=== PATIENT | female | born 1940 | race Caucasian/White ===

== ENCOUNTER 2017-10-05 19:46 | Emergency (ER) | payer MEDICARE, OTHER ==
[~2017-10-05 19:46] MED LIST: ASPI-667 PO; ATOR20TA PO; CARV6.25 PO; CHOL20002 PO; DIGO125T PO; FAMO-75 PO; FERR47.57 PO; FURO-81 PO; IBUP200C5 PO; LORA10TA62 PO; LOSA25TA5 PO; MAGN250T9 PO; METH500T7 PO; MONT10TA6 PO; POTA20TA14 PO; TRAM50TA PO; TRIA10.8 NS
[2017-10-05 20:24] VITALS: BP 154/84
--- NOTE | 2017-10-05 20:29 | ER.PDOC ---
General Chief Complaint: Requesting Medical Care Stated Complaint: BLOODY NOSE Time seen by MD: 20:20 Source: patient Exam Limitations: no limitations History of Present Illness Initial Comments Pt with right nose bleed since this morning, stopped and later on resumed again and by now has stopped again Timing/Duration: abrupt Location: right nare Severity: moderate Associated Symptoms: recent illness Allergies: Coded Allergies: Iodinated Contrast Media - Oral and (Verified Allergy, Severe, 06/14/16) codeine (Verified Adverse Reaction, Unknown, 10/27/16) Home Meds Reported Medications Ibuprofen (IBUPROFEN) 200 Mg Capsule, 200 MG PO PRN Y for PAIN, CAPSULE 01/28/15 Magnesium Oxide (MAGNESIUM) 250 Mg Tablet, 250 MG PO DAILY, TABLET 01/28/15 Aspirin (ASPIRIN) 81 Mg Tab.chew, 1 TAB PO DAILY, #30 TAB 3 Refills 01/28/15 Triamcinolone Acetonide (Nasacort) 10.8 Ml [place], 10.8 ML NS DAILY, SPRAY 01/28/15 Famotidine (PEPCID) 20 Mg Tablet, 1 TAB PO DAILY, #60 TAB 3 Refills 01/28/15 Loratadine (LORATADINE) 10 Mg Tab.rapdis, 10 MG PO DAILY 01/28/15 Cholecalciferol (Vitamin D3) (VITAMIN D) 2,000 Unit Tablet, 2000 UNIT PO DAILY, TABLET 01/28/15 Ferrous Sulfate (SLOW RELEASE IRON) 47.5 Mg Tablet.er, 47.5 MG PO BID 01/28/15 Tramadol Hcl (TRAMADOL HCL) 50 Mg Tablet, 50 MG PO PRN Y for PAIN, TABLET 01/28/15 Montelukast Sodium (SINGULAIR) 10 Mg Tablet, 1 TAB PO DAILY, #90 TAB 1 Refill 01/28/15 Methocarbamol (METHOCARBAMOL) 500 Mg Tablet, 500 MG PO PRN Y for MUSCLE SPASM, TABLET 01/28/15 Potassium Chloride (POTASSIUM CHLORIDE) 20 Meq Tab.er.prt, 1 TAB PO DAILY, #30 TAB 5 Refills 01/28/15 Furosemide (LASIX) 20 Mg Tablet, 1 TAB PO DAILY, #90 TAB 1 Refill 01/28/15 Losartan Potassium (LOSARTAN POTASSIUM) 25 Mg Tablet, 1 TAB PO DAILY, #90 TAB 1 Refill 01/28/15 Carvedilol 6.25MG (COREG 6.25MG) 6.25 Mg Tablet, 1 TAB PO BID, #180 TAB 1 Refill 01/28/15 Digoxin (DIGOXIN) 125 Mcg Tablet, 1 TAB PO DAILY, #30 TAB 5 Refills 01/28/15 Atorvastatin 20MG (LIPITOR 20MG) 20 Mg Tablet, 1 TAB PO DAILY, #90 TAB 1 Refill 01/28/15 Constitutional: no symptoms reported Eyes: no symptoms reported Ears: no symptoms reported Nose: see HPI, clots, epistaxis Mouth: no symptoms reported Throat: no symptoms reported Respiratory: no symptoms reported Cardiovascular: no symptoms reported Gastrointestinal: no symptoms reported Musculoskeletal: no symptoms reported Skin: no symptoms reported Neurological: no symptoms reported Hematologic/Lymphatic: no symptoms reported Immunological/Allergic: no symptoms reported Past Medical History Surgical History: tonsillectomy, tubal, other Physical Exam General Appearance: alert, no distress Nose: no active bleeding, fresh clots, uncertain Head/Neck: atraumatic, thyroid nml Eyes/Ears: eyes nml inspection, PERRL, no nystagmus, TM nml Mouth: lips, gums nml, pharynx nml NEURO/PSYCH: oriented X3, mood/effect nml Respiratory: no resp. distress CVS: reg. rate & rhythm, heart sounds nml Abdomen: non-tender, no organomegaly Skin Exam: Normal Color, Warm/Dry Departure Time of Disposition: 20:30 Disposition: 01 HOME, SELF-CARE Impression: Primary Impression: Epistaxis Condition: Stable Patient Instructions: Nosebleed, [id number] Referrals: ABEL SAUER MD (PCP) PRIMARY CARE PROVIDER Duration or Time Spent with Pa: LILIAN LOPEZ MD Oct 05, 2017 20:29
[2017-10-05 20:55] VITALS: BP 154/84
== END 2017-10-05 20:51 | disposition home or self-care (01) ==
LOC: ER 19:46
DX: R04.0 Epistaxis (principal); Z79.82 Long term (current) use of aspirin; Z88.5 Allergy status to narcotic agent; Z79.899 Other long term (current) drug therapy
CPT/HCPCS: 99281

== ENCOUNTER 2019-01-19 08:23 | Emergency (ER) | payer MEDICARE ==
[~2019-01-19] VITALS: Ht 162.6 cm; Wt 83.9 kg
[~2019-01-19 08:23] MED LIST changes: -CHOL20002 PO; +CHOL200052 PO; -IBUP200C5 PO; +LOSA25TA12 PO; -LOSA25TA5 PO; +[UNRECOGNIZED DRUG - CODE] PO
[2019-01-19 08:44] VITALS: BP 142/59
--- NOTE | 2019-01-19 08:58 | ER.PDOC ---
General Chief Complaint: Trauma Stated Complaint: FALL-FACIAL INJURY Time seen by MD: 09:00 Source: patient Exam Limitations: no limitations History of Present Illness Occurred: just prior to arrival Where: home Severity: mild Injuries/Pain Location: face, chest, lower extremity Loss of Consciousness: No Loss of Consciousness Modifying Factors: improves with immobilization Associated Symptoms: denies symptoms Allergies: Coded Allergies: Iodinated Contrast Media - Oral and (Verified Allergy, Severe, 06/14/16) codeine (Verified Adverse Reaction, Unknown, 10/27/16) MEDS Reported Medications Ibuprofen (IBUPROFEN) 200 Mg Capsule, 200 MG PO PRN PRN for PAIN, CAPSULE 01/28/15 Magnesium Oxide (MAGNESIUM) 250 Mg Tablet, 250 MG PO DAILY, TABLET 01/28/15 Aspirin (ASPIRIN) 81 Mg Tab.chew, 1 TAB PO DAILY, #30 TAB 3 Refills 01/28/15 Triamcinolone Acetonide (Nasacort) 10.8 Ml [place], 10.8 ML NS DAILY, SPRAY 01/28/15 Famotidine (PEPCID) 20 Mg Tablet, 1 TAB PO DAILY, #60 TAB 3 Refills 01/28/15 Loratadine (LORATADINE) 10 Mg Tab.rapdis, 10 MG PO DAILY 01/28/15 Cholecalciferol (Vitamin D3) (VITAMIN D) 2,000 Unit Tablet, 2000 UNIT PO DAILY, TABLET 01/28/15 Ferrous Sulfate (SLOW RELEASE IRON) 47.5 Mg Tablet.er, 47.5 MG PO BID 01/28/15 Tramadol Hcl (TRAMADOL HCL) 50 Mg Tablet, 50 MG PO PRN PRN for PAIN, TABLET 01/28/15 Montelukast Sodium (SINGULAIR) 10 Mg Tablet, 1 TAB PO DAILY, #90 TAB 1 Refill 01/28/15 Methocarbamol (METHOCARBAMOL) 500 Mg Tablet, 500 MG PO PRN PRN for MUSCLE SPASM, TABLET 01/28/15 Potassium Chloride (POTASSIUM CHLORIDE) 20 Meq Tab.er.prt, 1 TAB PO DAILY, #30 TAB 5 Refills 01/28/15 Furosemide (LASIX) 20 Mg Tablet, 1 TAB PO DAILY, #90 TAB 1 Refill 01/28/15 Losartan Potassium (LOSARTAN POTASSIUM) 25 Mg Tablet, 1 TAB PO DAILY, #90 TAB 1 Refill 01/28/15 Carvedilol 6.25MG (COREG 6.25MG) 6.25 Mg Tablet, 1 TAB PO BID, #180 TAB 1 Refill 01/28/15 Digoxin (DIGOXIN) 125 Mcg Tablet, 1 TAB PO DAILY, #30 TAB 5 Refills 01/28/15 Atorvastatin 20MG (LIPITOR 20MG) 20 Mg Tablet, 1 TAB PO DAILY, #90 TAB 1 Refill 01/28/15 Past Medical History Medical History: heart valve disease, hypertension Surgical History: hysterectomy LMP (females 10-50): hysterectomy Social History Smoking: non-smoker Alcohol Use: none Drug Use: none Reviewed Nursing Reviewed: Vital Signs, Abn. Noted Review of Systems All Other Systems: Reviewed and Negative Physical Exam General Appearance: No Apparent Distress, WD/WN Head: No Evidence of Injury Ears, Nose, Mouth, Throat: Hearing Grossly Normal, No Dental Injury Neck: Non-Tender, Normal Alignment, Nexus criteria neg, Normal Inspection 1 - nasal deformity Cardiovascular/Respiratory: Regular Rate, Rhythm, No M/R/G, Normal Peripheral P ulses, No JVD, Normal Breath Sounds, No Respiratory Distress, Rib Tenderness Gastrointestinal: Normal Bowel Sounds, No Organomegaly, No Pulsatile Mass, Non Tender, Soft Back: Normal Inspection, No CVA Tenderness, No Vertebral Tenderness Extremities: No Evidence of Injury, Normal Range of Motion, Non-Tender, No Pedal Edema, Other (great t) 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 as Tested, No Motor/Sensory Deficits, Alert, Normal Mood/Affect, Oriented x 3 Skin: Normal Color [place] Coma Score [place] Total: 15 Results/Orders Results/Orders Orders - MIRNA MARIO MD Ct Facial Bones Wo Contrast (01/19/19 08:51) Xr Ribs Lt W/Cxr (01/19/19 08:51) Xr Toe Rt (01/19/19 08:51) Vital Signs Date Time Temp Pulse Resp B/P (MAP) Pulse Ox O2 Delivery O2 Flow Rate FiO2 01/19/19 08:44 97.8 69 18 142/59 (86) 97 Room Air 97.8 01/19/19 08:44 97.8 69 18 97.8 01/19/19 08:44 97.8 69 18 97 Room Air 97.8 Departure Time of Disposition: 10:22 Disposition: 01 HOME, SELF-CARE Impression: Primary Impression: Nasal bone fracture Additional Impression: Contusion Condition: Improved Referrals: ABEL SAUER MD (PCP) PRIMARY CARE PROVIDER Duration or Time Spent with Pa: 30 MIN MIRNA MARIO MD Jan 19, 2019 08:58
--- NOTE | 2019-01-19 09:09 | NUR ---
CT PT OFF UNIT FOR CT VIA W/C.
--- NOTE | 2019-01-19 09:40 | DIREP ---
PROCEDURE:XRAY RIBS W/PA CHEST 3VWS-LT COMPARISON:None. INDICATIONS:fall, 5,6 rib pain l TECHNIQUE:PA chest and 3 view of the left ribs FINDINGS: Left RIBS:No displaced fracture. LUNGS/PLEURA: Trace linear right lower lobe airspace opacities. Left lung is clear. No pneumothorax. CARDIAC: Heart size is normal. Sternotomy wires are noted. Prosthetic heart valve. MEDIASTINUM: Aorta is partly calcified. BONES: Normal. OTHER: No additional findings. CONCLUSION: 1. Trace linear patchy opacity in the right lower lobe may represent atelectasis or pleural plaquing. 2. No evidence of displaced rib fracture. No pneumothorax. Dictated by: Rigo Smalls MD on 01/19/2019 at 09:37 AM
--- NOTE | 2019-01-19 09:42 | DIREP ---
PROCEDURE:XRAY TOE-RT COMPARISON:None. INDICATIONS:fall FINDINGS:AP, lateral, and oblique view. BONES:No evidence of radiodense foreign body. JOINTS:No dislocation. Mild degenerative changes of the 1st metatarsal phalangeal joint. SOFT TISSUES:Calcifications are seen on the lateral view that may be related to plantar fasciitis or sequelae of prior injury. OTHER:No additional findings. CONCLUSION:No acute visible fracture. See above description. Dictated by: Rigo Smalls MD on 01/19/2019 at 09:40 AM
--- NOTE | 2019-01-19 09:54 | DIREP ---
PROCEDURE:CT MAXILLOFACIAL W/O CONTRAST COMPARISON:None. INDICATIONS:fall, nasal deformity TECHNIQUE:Axial CT images were created without intravenous contrast. Sagittal and coronal reformatted images are provided. FINDINGS: ORBITS:The globe is intact. No extraocular muscle entrapment is identified. No orbital wall fracture is identified. FACIAL BONES:No fracture. NASAL BONES :Age-indeterminate medially displaced or nondisplaced bilateral nasal bone fractures are seen. MANDIBLE:No fracture. SINUSES:Post sinus surgery. Bilateral mucosal thickening in the maxillary sinuses. SOFT TISSUES:No significant hematoma, or soft tissue swelling. CONCLUSION: 1. Age-indeterminate medially displaced or nondisplaced bilateral nasal bone fractures. 2. Severe maxillary sinus disease. Dictated by: Abhi Wadsworth MD on 01/19/2019 at 09:45 AM
[2019-01-19 11:26] VITALS: BP 142/59
== END 2019-01-19 10:23 | disposition home or self-care (01) ==
LOC: ER 08:23
DX: S02.2XXA Fracture of nasal bones, initial encounter for closed fracture (principal); I10 Essential (primary) hypertension; Z79.82 Long term (current) use of aspirin; Z79.899 Other long term (current) drug therapy; Z88.5 Allergy status to narcotic agent; Z90.710 Acquired absence of both cervix and uterus; X58.XXXA Exposure to other specified factors, initial encounter; Y93.89 Activity, other specified; Y92.098 Other place in other non-institutional residence as the place of occurrence of the external cause; Y99.8 Other external cause status
CPT/HCPCS: 70486; 99284; 71101-LT; 73660-RT

== ENCOUNTER → 2019-02-14 | Outpatient (CLI) | payer MEDICARE ==
[2019-02-14 12:10] LABS: HEMOGLOBIN 14.3 g/dL (12.0-15.0); MEAN CELL HGB 30.1 pg (26-34); MEAN CELL HGB CONCENTRATION 32.6 g/dL (33-37); MEAN CORP VOLUME 92.2 fL (78-100); RED CELL DISTRIBUTION WIDTH 14.1 % (11.5-14.5); WHITE BLOOD CELL 10.3 10^3/uL (4.5-11.0)
[2019-02-14 12:25] LABS: CALCIUM 8.7 mg/dL (8.4-10.5); CARBON DIOXIDE 26.6 mmol/L (20.0-32)
== END | disposition home or self-care (01) ==
LOC: LAB 11:54
PROVIDERS: ATTEND Internal Medicine Rheumatology
DX: R76.8 Other specified abnormal immunological findings in serum (principal)
CPT/HCPCS: 36415; 80053; 85027; 85651; 86140

== ENCOUNTER 2021-01-14 10:34 | Emergency (ER) | payer MEDICARE ==
[~2021-01-14] VITALS: Ht 162.6 cm; Wt 83.9 kg
[~2021-01-14 10:34] MED LIST changes: -DIGO125T PO; +DIGO125T3 PO; +LORA-60 PO; -LORA10TA62 PO; +METH-621 PO; -METH500T7 PO
--- NOTE | 2021-01-14 10:52 | NUR ---
DR GAL ELIAS ON THE PHONE WITH DR SANTO WHO STATES FOR PT TO FOLLOW UP WITH HIM IN THE OFFICE THIS AFTERNOON.
[2021-01-14 10:54] VITALS: BP 124/67
--- NOTE | 2021-01-14 11:02 | ER.PDOC ---
General Chief Complaint: Requesting Medical Care Stated Complaint: INJURY LEFT FOOT Time seen by MD: 10:55 Source: patient History of Present Illness Initial Comments Patient is a very pleasant 80-year-old female who presents today with left foot pain. Patient states she was sitting on a barstool that it caused her left foot to go numb, when she stood she suffered an inversion injury. Patient denies any other injuries. Happened just prior to arrival, at home, exacerbating factors include walking, severity is moderate Allergies: Coded Allergies: Iodinated Contrast Media - Oral and (Verified Allergy, Severe, 06/14/16) codeine (Verified Adverse Reaction, Unknown, 10/27/16) Home Meds Reported Medications Ibuprofen (IBUPROFEN) 200 Mg Capsule, 200 MG PO PRN PRN for PAIN, CAPSULE 01/28/15 Magnesium Oxide (MAGNESIUM) 250 Mg Tablet, 250 MG PO DAILY, TABLET 01/28/15 Aspirin (ASPIRIN) 81 Mg Tab.chew, 1 TAB PO DAILY, #30 TAB 3 Refills 01/28/15 Triamcinolone Acetonide (Nasacort) 10.8 Ml [place], 10.8 ML NS DAILY, SPRAY 01/28/15 Famotidine (PEPCID) 20 Mg Tablet, 1 TAB PO DAILY, #60 TAB 3 Refills 01/28/15 Loratadine (LORATADINE) 10 Mg Tab.rapdis, 10 MG PO DAILY 01/28/15 Cholecalciferol (Vitamin D3) (VITAMIN D) 2,000 Unit Tablet, 2000 UNIT PO DAILY, TABLET 01/28/15 Ferrous Sulfate (SLOW RELEASE IRON) 47.5 Mg Tablet.er, 47.5 MG PO BID 01/28/15 Tramadol Hcl (TRAMADOL HCL) 50 Mg Tablet, 50 MG PO PRN PRN for PAIN, TABLET 01/28/15 Montelukast Sodium (SINGULAIR) 10 Mg Tablet, 1 TAB PO DAILY, #90 TAB 1 Refill 01/28/15 Methocarbamol (METHOCARBAMOL) 500 Mg Tablet, 500 MG PO PRN PRN for MUSCLE SPASM, TABLET 01/28/15 Potassium Chloride (POTASSIUM CHLORIDE) 20 Meq Tab.er.prt, 1 TAB PO DAILY, #30 TAB 5 Refills 01/28/15 Furosemide (LASIX) 20 Mg Tablet, 1 TAB PO DAILY, #90 TAB 1 Refill 01/28/15 Losartan Potassium (LOSARTAN POTASSIUM) 25 Mg Tablet, 1 TAB PO DAILY, #90 TAB 1 Refill 01/28/15 Carvedilol 6.25MG (COREG 6.25MG) 6.25 Mg Tablet, 1 TAB PO BID, #180 TAB 1 Refill 01/28/15 Digoxin (DIGOXIN) 125 Mcg Tablet, 1 TAB PO DAILY, #30 TAB 5 Refills 01/28/15 Atorvastatin 20MG (LIPITOR 20MG) 20 Mg Tablet, 1 TAB PO DAILY, #90 TAB 1 Refill 01/28/15 Past Medical History Surgical History: hysterectomy Social History Drug Use: none Reviewed Nursing Reviewed: Vital Signs, Abn. Noted, Nursing Assessment Review of Systems Constitutional: denies no symptoms reported, denies see HPI, denies chills, denies diaphoresis, denies fever, denies malaise, denies weakness, denies other EENTM: denies no symptoms reported, denies see HPI, denies eye pain, denies blurred vision, denies tearing, denies double vision, denies ear pain, denies ear discharge, denies nose pain, denies nose congestion, denies throat pain, denies throat swelling, denies mouth pain, denies mouth swelling, denies other Respiratory: denies no symptoms reported, denies see HPI, denies cough, denies orthopnea, denies shortness of breath, denies stridor, denies wheezing, denies other Cardiovascular: denies no symptoms reported, denies see HPI, denies chest pain, denies edema, denies palpitations, denies syncope, denies other Gastrointestinal: denies no symptoms reported, denies see HPI, denies abdominal pain, denies constipation, denies diarrhea, denies nausea, denies vomiting, denies other Genitourinary: denies no symptoms reported, denies see HPI, denies discharge, denies dysuria, denies frequency, denies hematuria, denies pain, denies other Musculoskeletal: see HPI Skin: denies no symptoms reported, denies see HPI, denies change in color, denies change in hair/nails, denies dryness, denies lesions, denies lumps, denies rash, denies other Psychiatric/Neurological: denies no symptoms reported, denies see HPI, denies anxiety, denies depressed, denies emotional problems, denies headache, denies numbness, denies paresthesia, denies pre-existing deficit, denies seizure, denies tingling, denies tremors, denies weakness, denies other All Other Systems: Reviewed and Negative Physical Exam General Appearance: Alert, No Apparent Distress Foot: tenderness, swelling, ecchymosis Ankle: nml inspection Knee: nml inspection, non-tender, nml ROM, no joint swelling Thigh/Hip: nml inspection Gait: unable to bear weight Neuro/Vasc/Tendon: sensation nml, motor nml, no vascular compromise, tendon function nml Skin: warm/dry Head/ENT: nml inspection, pharynx nml Neck/Back: nml inspection, non-tender Abdomen: non-tender, pelvis stable Results/Orders Results/Orders Orders - JANNA ELIAS DO Xr Foot Lt (01/14/21 10:41) Tramadol Hcl (Ultram) (01/14/21 10:57) Ibuprofen (Motrin) (01/14/21 10:57) Acetaminophen (Tylenol) (01/14/21 10:57) Progress Progress Spoke with Dr. Barahona with orthopedic surgery who recommends placing the patient in a boot and having the patient follow-up in his office today. ER DEPART Departure Time of Disposition: 11:00 Disposition: 01 HOME / SELF CARE / HOMELESS Impression: Primary Impression: [place] fracture Condition: Improved Patient Instructions: Crutch Use, [id number], Foot Fracture-Brief Referrals: ALFREDITO GARCIA (PCP) PRIMARY CARE PROVIDER PRUDENCE BARAHONA MD Duration or Time Spent with Pa: 0 Problem Qualifiers Primary Impression: [place] fracture Encounter type: initial encounter Fracture type: closed Laterality: left Qualified Codes: S99.192A - Other physeal fracture of left metatarsal, initial encounter for closed fracture JANNA ELIAS DO Jan 14, 2021 11:02
--- NOTE | 2021-01-14 11:07 | DIREP ---
PROCEDURE:XRAY FOOT MIN 3 VWS-LT COMPARISON:None. INDICATIONS:pain FINDINGS: BONES:There is a nondisplaced transverse fracture of the base of the 5th metatarsal. JOINTS:Normal. SOFT TISSUES:Normal. OTHER:No additional findings. CONCLUSION:Fracture of the proximal left 5th metatarsal. Dictated by: Nabil Soto M.D. on 01/14/2021 at 11:05 AM
[2021-01-14 11:24] VITALS: BP 124/67
[2021-01-14] MEDS ORDERED: TYLENOL ONE (11:27)
[2021-01-14] MEDS ORDERED: MOTRIN ONE (11:27)
[2021-01-14] MEDS ORDERED: ULTRAM ONE ×2 (11:28)
[2021-01-14] MEDS: ULTRAM PO STA (11:31)
[2021-01-14] MEDS: MOTRIN PO STA (11:31)
[2021-01-14] MEDS: TYLENOL PO STA (11:32)
== END 2021-01-14 11:37 | disposition home or self-care (01) ==
LOC: ER 10:34
DX: S92.355A Nondisplaced fracture of fifth metatarsal bone, left foot, initial encounter for closed fracture (principal); Z79.1 Long term (current) use of non-steroidal anti-inflammatories (NSAID); Z79.82 Long term (current) use of aspirin; Z79.899 Other long term (current) drug therapy; Z88.5 Allergy status to narcotic agent; Z90.710 Acquired absence of both cervix and uterus; W19.XXXA Unspecified fall, initial encounter; Y93.89 Activity, other specified; Y92.89 Other specified places as the place of occurrence of the external cause; Y99.8 Other external cause status
CPT/HCPCS: 73630; 99284; J3490

== ENCOUNTER 2021-10-15 09:47 | Day surgery (SDC) | payer MEDICARE ==
[2021-10-15] VITALS (32 sets, daily range): BP systolic 101–159; BP diastolic 43–88
[~2021-10-15] VITALS: Ht 162.6 cm; Wt 83.9 kg
[~2021-10-15 09:47] MED LIST changes: +POTA-148 PO; -POTA20TA14 PO
[2021-10-15 10:52] LABS: BASOPHIL # 0.1 10^3/uL (0.0-0.1); BASOPHIL % 0.8 % (0.0-0.2); EOSINOPHIL # 0.2 10^3/uL (0.0-0.2); EOSINOPHIL % 3.1 % (0.0-5.0); LYMPHOCYTES # 2.28 10^3/uL1 (1.0-4.8); LYMPHOCYTES % 29.5 % (24.0-44.0); MEAN CORP HGB 30.4 pg (26-34); MONOCYTES # 0.5 10^3/uL (0.3-0.8); NEUTROPHIL # 4.6 10^3/uL (1.8-7.7); NEUTROPHILS % 59.5 % (41.0-85.0); PLATELET COUNT 205 10^3/uL (150-400)
--- NOTE | 2021-10-15 10:58 | PCM.EKG ---
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
--- NOTE | 2021-10-15 10:58 | ER.PDOC ---
General Chief Complaint: Requesting Medical Care Stated Complaint: CONFUSION,HEADACHE Time seen by MD: 10:56 Source: patient, family Exam Limitations: no limitations History of Present Illness Initial Comments Patient is 80 years old female who was told by her granddaughter who is a nurse to come to ED to be checked. She had an episode of headache and confusion yesterday that lasted about 45 minutes. She also had blurry vision during that time. Symptoms have completely resolved but came to be checked. Character of AMS: confused Usually: orientedx3 Allergies: Coded Allergies: Iodinated Contrast Media (Verified Allergy, Severe, 06/14/16) codeine (Verified Adverse Reaction, Unknown, 10/27/16) Home Meds Reported Medications Ibuprofen (IBUPROFEN) 200 Mg Capsule, 200 MG PO PRN PRN for PAIN, CAPSULE 01/28/15 Magnesium Oxide (MAGNESIUM) 250 Mg Tablet, 250 MG PO DAILY, TABLET 01/28/15 Aspirin (ASPIRIN) 81 Mg Tab.chew, 1 TAB PO DAILY, #30 TAB 3 Refills 01/28/15 Triamcinolone Acetonide (Nasacort) 10.8 Ml [place], 10.8 ML NS DAILY, SPRAY 01/28/15 Famotidine (PEPCID) 20 Mg Tablet, 1 TAB PO DAILY, #60 TAB 3 Refills 01/28/15 Loratadine (LORATADINE) 10 Mg Tab.rapdis, 10 MG PO DAILY 01/28/15 Cholecalciferol (Vitamin D3) (VITAMIN D) 2,000 Unit Tablet, 2000 UNIT PO DAILY, TABLET 01/28/15 Ferrous Sulfate (SLOW RELEASE IRON) 47.5 Mg Tablet.er, 47.5 MG PO BID 01/28/15 Tramadol Hcl (TRAMADOL HCL) 50 Mg Tablet, 50 MG PO PRN PRN for PAIN, TABLET 01/28/15 Montelukast Sodium (SINGULAIR) 10 Mg Tablet, 1 TAB PO DAILY, #90 TAB 1 Refill 01/28/15 Methocarbamol (METHOCARBAMOL) 500 Mg Tablet, 500 MG PO PRN PRN for MUSCLE SPASM, TABLET 01/28/15 Potassium Chloride (POTASSIUM CHLORIDE) 20 Meq Tab.er.prt, 1 TAB PO DAILY, #30 TAB 5 Refills 01/28/15 Furosemide (LASIX) 20 Mg Tablet, 1 TAB PO DAILY, #90 TAB 1 Refill 7/1/15 Losartan Potassium (LOSARTAN POTASSIUM) 25 Mg Tablet, 1 TAB PO DAILY, #90 TAB 1 Refill 01/28/15 Carvedilol 6.25MG (COREG 6.25MG) 6.25 Mg Tablet, 1 TAB PO BID, #180 TAB 1 Refill 01/28/15 Digoxin (DIGOXIN) 125 Mcg Tablet, 1 TAB PO DAILY, #30 TAB 5 Refills 01/28/15 Atorvastatin 20MG (LIPITOR 20MG) 20 Mg Tablet, 1 TAB PO DAILY, #90 TAB 1 Refill 01/28/15 Past Medical History Medical History: asthma, high cholesterol, hypertension, other Surgical History: hysterectomy Family History Significant Family History: no pertinent family hx Social History Smoking: non-smoker Alcohol Use: none Drug Use: none Review of Systems Constitutional: no symptoms reported Respiratory: no symptoms reported Cardiovascular: no symptoms reported Genitourinary: no symptoms reported Psychiatric/Neurological: see HPI All Other Systems: Reviewed and Negative Physical Exam General Appearance: alert, no distress HEENT: no apparent trauma, EOM's intact, no nystagmus, PERRL, ENT inspection nml, pharynx nml, airway intact, oral exam nml Neuro/Psych: oriented x3, nml speech/cognition, nml mood/affect Cranial Nerves: nml as tested Peripheral Exam: motor nml, sensation nml, reflexes nml Neck: supple, non-tender, no carotid bruit Respiratory: no resp distress, breath sounds nml CVS: reg rate & rhythm, heart sounds nml Abdomen: non-tender, no organomegaly, no distention Skin: color nml, no rash, warm/dry Extremities: non-tender, nml ROM, no pedal edema Results/Orders Results/Orders Orders - DAMIAN EARL MD Cbc With Auto Diff (10/15/21 10:33) Comprehensive Metabolic Panel (10/15/21 10:33) Creatine Kinase (10/15/21 10:33) PT (10/15/21 10:33) Xr Chest 1v (10/15/21 10:33) Partial Thromboplastin Time. (10/15/21 10:33) Ekg-Routine (10/15/21 10:33) Ct Head Wo Contrast (10/15/21 10:33) Troponin I High Sensitivity (10/15/21 10:33) Covid19 Antigen Kymberly Geraldine (10/15/21 11:32) Urinalysis (10/15/21 11:48) Covid Resp [place] (10/15/21 12:14) Cta Neck (10/15/21 12:14) Cta Head (10/15/21 12:14) Diphenhydramine Hcl (Benadryl) (10/15/21 12:27) Vital Signs Date Time Temp Pulse Resp B/P (MAP) Pulse Ox O2 Delivery O2 Flow Rate FiO2 10/15/21 10:06 98.5 75 18 96 10/15/21 10:06 98.5 75 18 10/15/21 10:06 98.5 75 18 96 Laboratory Tests Test 10/15/21 10:45 10/15/21 11:30 White Blood Count 7.7 10^3/uL (4.5-11.0) Red Blood Count 4.31 10^6/uL (4.00-5.20) Hemoglobin 13.1 g/dL (12.0-15.0) Hematocrit 41.2 % (36.0-46.0) Mean Corpuscular Volume 95.6 fL (78-100) Mean Corpuscular Hemoglobin 30.4 pg (26-34) Mean Corpuscular Hemoglobin Concent 31.8 g/dL (33-36.5) L Red Cell Distribution Width 13.0 % (11.5-14.5) Platelet Count 205 10^3/uL (150-400) Mean Platelet Volume 9.4 fL (7.8-11.0) Neutrophils (%) (Auto) 59.5 % (41.0-85.0) Lymphocytes (%) (Auto) 29.5 % (24.0-44.0) Monocytes (%) (Auto) 7.0 % (5.0-12.0) Neutrophils # (Auto) 4.6 10^3/uL (1.8-7.7) Lymphocytes # (Auto) 2.28 10^3/uL1 (1.0-4.8) Monocytes # (Auto) 0.5 10^3/uL (0.3-0.8) Absolute Immature Granulocyte (auto 0.01 10^3 u/L (0-2) Absolute Eosinophils (auto) 0.2 10^3/uL (0.0-0.2) Immature Granulocytes % 0.10 % (0.00-0.50) Eosinophils % 3.1 % (0.0-5.0) Basophils % 0.8 % (0.0-0.2) H Basophils # 0.1 10^3/uL (0.0-0.1) Prothrombin Time 9.5 SEC (9.1-11.5) Prothrombin Time INR (Non-Therap) 0.9 Activated Partial Thromboplast Time 22.5 SEC (22.5-33.1) Sodium Level 142 mmol/L (132-145) Potassium Level 4.1 mmol/L (3.6-5.2) Chloride Level 105.0 mmol/L (96-109) Carbon Dioxide Level 27.1 mmol/L (20.0-32) Anion Gap 14.0 Blood Urea Nitrogen 30 mg/dL (7-18) H Creatinine 1.08 mg/dL (0.59-1.40) Estimated GFR () 59.1 (>/=60) Est GFR (CKD-EPI)(Non-Afr [place]) 48.8 (>/=60) BUN/Creatinine Ratio 27.0 Glucose Level 100 mg/dL (70-110) Calcium Level 9.4 mg/dL (8.4-10.5) Total Bilirubin 0.8 mg/dL (0.2-1.0) Aspartate Amino Transferase (AST) 16 U/L (0-35) Alanine Aminotransferase (ALT) 17 U/L (12-78) Alkaline Phosphatase 72 U/L (50-136) Total Creatine Kinase 74 U/L (26-192) Troponin I High Sensitivity 227 ng/L (0-50) *H Total Protein 7.1 g/dL (6.4-8.2) Albumin 3.8 g/dL (3.4-5.0) Globulin 3.3 Albumin/Globulin Ratio 1.151 Urine Collection Type UNKNOWN Urine Color YELLOW Urine Appearance CLEAR Urine Bilirubin NEGATIVE (NEGATIVE) Urine Ketones NEGATIVE (NEGATIVE) Urine Specific [place] 1.010 (1.005-1.030) Urine pH 5.0 (4.5-8.0) Urine Protein NEGATIVE (NEGATIVE) Urine Urobilinogen 0.2 E.U./dL (0.2) Urine Nitrate NEGATIVE (NEGATIVE) Urine Leukocyte Esterase NEGATIVE (NEGATIVE) Urine Glucose (Auto)(UA) NEGATIVE (NEGATIVE) Urine Blood NEGATIVE (NEGATIVE) SARS-CoV-2 Antigen (Rapid) NEGATIVE (NEGATIVE) EKG/XRAY/CT/US EKG: NSR EKG Comments: HR 62, normal P axis ER DEPART Departure Time of Disposition: 12:53 Disposition: 09 ADMITTED INPATIENT Impression: Primary Impression: TIA (transient ischemic attack) Additional Impression: Troponin level elevated Condition: Stable Referrals: ALFREDITO GARCIA (PCP) PRIMARY CARE PROVIDER Comments Admitted to Dr. Mendoza Duration or Time Spent with Pa: 60 min Problem Qualifiers DAMIAN EARL MD Oct 15, 2021 10:58
[2021-10-15 11:24] LABS: CARBON DIOXIDE 27.1 mmol/L (20.0-32)
--- NOTE | 2021-10-15 11:26 | NUR ---
CRITICAL LAB TROPONIN IS 227, NOTIFIED AT THIS TIME.
--- NOTE | 2021-10-15 11:44 | DIREP ---
PROCEDURE:CT HEAD OR BRAIN W/O CONTRAST COMPARISON:None. INDICATIONS:AMS TECHNIQUE:CT images were created without intravenous contrast. FINDINGS: VENTRICLES:There is mild prominence of the ventricles and cortical sulci consistent with age related involutional changes. CEREBRUM:Normal cerebral morphology with appropriate carver white matter differentiation. CEREBELLUM:Negative. BRAINSTEM:Negative. BASAL CISTERNS:Negative. HEMORRHAGE:No MASS LESION:No ACUTE INFARCT:No SKULL:Normal. SINUSES:Normal. OTHER:Left vertebral artery calcification. CONCLUSION:Mild chronic changes. No acute intracranial abnormality. Otherwise, negative head CT. Dictated by: Leo Garcia M.D. on 10/15/2021 at 11:41 AM
[2021-10-15 11:55] LABS: BILIRUBIN,URINE NEGATIVE (NEGATIVE); UROBILINOGEN,URINE 0.2 E.U./dL (0.2)
--- NOTE | 2021-10-15 11:57 | DIREP ---
PROCEDURE:CHEST 1 VIEW COMPARISON:[facility], CR, XRAY RIBS W/PA CHEST 3VWS-LT, 01/19/2019, 08:57 AM. [facility], CR, XRAY CHEST 2 VWS, 08/04/2016, 02:44 PM. INDICATIONS:AMS FINDINGS: LUNGS/PLEURA:Low lung volumes. No focal consolidation, pleural effusion, or pneumothorax. VASCULATURE:Normal. Unremarkable pulmonary vasculature. CARDIAC:Heart size within normal limits. Status post median sternotomy. MEDIASTINUM:Normal. No visible mass or adenopathy. BONES:No acute osseus abnormality. OTHER:Negative. CONCLUSION: 1. No acute cardiopulmonary process. Dictated by: Prosper Pearce MD on 10/15/2021 at 11:54 AM
--- NOTE | 2021-10-15 12:22 | NUR ---
CAMACHO DOCTOR RAJAT ON THE PHONE WITH DOCTOR SAUER AT THIS TIME.
[2021-10-15] MEDS ORDERED: BENADRYL ONE (12:27)
[2021-10-15] MEDS ORDERED: BENADRYL IV STA (12:33)
[2021-10-15] MEDS ORDERED: PLAVIX PO STA (12:34)
[2021-10-15] MEDS ORDERED: ASPIRIN EC PO STA (12:34)
--- NOTE | 2021-10-15 12:39 | NUR ---
ARNIE WOULD NOT SCAN PROPERLY, WOULD NOT RECOGNIZE THE NDC CODE
[2021-10-15] MEDS ORDERED: ULTRAM PO PRN (13:00)
[2021-10-15] MEDS ORDERED: ASPIRIN ONE (13:15)
[2021-10-15] MEDS ORDERED: PLAVIX ONE (13:15)
--- NOTE | 2021-10-15 14:10 | DIREP ---
PROCEDURE:CTA HEAD NECK CT-CTA HEAD W/WO CONTRAST COMPARISON:[facility], CT, CT HEAD BRAIN W/O CONTRAST, 10/15/2021, 11:11 AM. [facility], CR, XRAY CHEST SINGLE VW, 10/15/2021, 11:12 AM. INDICATIONS:TIA TECHNIQUE:Following the rapid infusion of intravenous contrast, 1.3 mm axial CTA images were obtained through the head and neck. Multiplanar and 3-D reconstructions were performed from source images. FINDINGS: NECK CTA: AORTIC ARCH:Normal configuration. RIGHT CAROTID:Unremarkable, except for mild atherosclerotic changes. LEFT CAROTID:Unremarkable, except for mild atherosclerotic changes. VERTEBRAL ARTERIES: Unremarkable. NECK TISSUES:Unremarkable. LUNGS:Unremarkable. MEDIASTINUM:Unremarkable. BONE:Unremarkable, except for degenerative changes of the spine. HEAD CTA: INTERNAL CAROTIDS:Unremarkable. ANTERIOR CEREBRALS:Unremarkable. MIDDLE CEREBRALS:Unremarkable. VERTEBRALS/BASILAR:Unremarkable. POSTERIOR CEREBRALS:Unremarkable. PCOMM'S:Present bilaterally. HEAD SOFT TISSUES: Unremarkable. SINUSES:Prominent bilateral chronic maxillary sinusitis. Please note that this examination was not tailored for evaluation of the brain parenchyma. CONCLUSION:No hemodynamically significant stenosis. No large vessel occlusion, aneurysm, or AVM. Chronic changes are noted. Dictated by: Leo Garcia M.D. on 10/15/2021 at 02:02 PM
--- NOTE | 2021-10-15 16:52 | NUR ---
DISCHARGE PLANNING CM VISITED WITH PATIENT'S DAUGHTER ABOUT DISCHARGE PLANS AND NEEDS. PATIENT SLEEPING@THIS TIME. PATIENT CURRENTLY LIVES HOME ALONE AND DRIVES FROM [place] TO [place] TO [employer] AND CONTINUES TO WORK. PATIENT CURRENTLY HAS A CANE AND IND@HOME. PATIENT CURRENTLY SEE'S DR GARCIA FOR PCP. PLAN FOR PATIENT TO DISCHARGE HOME TO SELF CARE.
--- NOTE | 2021-10-15 19:29 | HPH ---
ADMIT DATE: 10/15/2021 DICTATOR NAME: Josep Mendoza MD CHIEF COMPLAINT: Lapse of memory, dizziness and cognition dysfunction. HISTORY OF PRESENT ILLNESS: The patient is an 80-year-old white female who has underlying history of bioprosthetic aortic valve replacement for aortic stenosis over 10 years ago, has hypertension, hypertensive heart disease and chronic diastolic heart failure and polyarthritis. She was playing cards yesterday when she suddenly had marked dizziness, lost control over her thoughts, had no recollection of what was happening and her speech appeared to be normal, but people around her noticed that she was not normal. She has no recollection of the events. This lasted for about 30-40 minutes. She did not have a syncopal episode, became very dizzy and she has had similar episodes, much short lasting before. The dizziness that has been ongoing symptom for her and subsequently she was brought to the Emergency Room today because she felt dizzy this morning. Her CT scan of the head along with CTA of the carotids were unremarkable for any large vessel occlusion and no infarct was documented. This was good contrast, and her troponin was elevated to 227. EKG showed a regular sinus rhythm, nonspecific ST-T wave changes. Monitor showing PACs followed by some pauses. BUN was 30, creatinine 1.08. In view of the biochemical abnormality of the elevated troponin, the patient was admitted to the hospital, initially thought to have a TIA, but also to rule out a coronary event, although she did not have any chest pain. There is no definite documentation of coronary artery disease and a prior myocardial perfusion scan in the office have been unrevealing for any provoked ischemia. ALLERGIES: IODINE CONTRAST, but this was several years ago. Since then, she has had a heart catheterization. PAST MEDICAL HISTORY: Hypertension, hypertensive heart disease, chronic diastolic heart failure and bioprosthetic aortic valve replacement for aortic stenosis several years ago. She has a functional aortic valve area close to 1 cm2, which is suboptimal for a prosthetic valve, but she has been stable and has progressive dyspnea and her velocities on echo are close to 2.5-3 m, consistent with possible functional bioprosthetic aortic valve stenosis to some extent. I had sent her to dialysis one time for a second opinion and it was felt that at this stage, the valve is functional and probably does not require a redo surgery. Please refer to my office notes for the details. SOCIAL HISTORY: Nonsmoker. No ethanol abuse. 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 FAMILY HISTORY: Positive for heart problems. Coronary artery disease is present in the family. Father of coronary artery disease and congestive heart failure. Her daughter of sudden cardiac with arrhythmias and she is reminded of her daughter because she used to have significant dizzy spells and irregular heartbeat. PHYSICAL EXAMINATION: GENERAL: When I saw her, she was alert, awake and oriented, 162 cm, 83 kg. BMI is 31.8. VITAL SIGNS: Shows pulse of 70, respirations 23, 139/63 blood pressure with 92% saturation. HEENT: Unremarkable. NECK: No JVD. No carotid bruits. LUNGS: Clear. Thick chest wall. HEART: S1, S2 normal. Systolic ejection murmur, grade 2/6, heard at the left sternal border and aortic area. This is because of the functional narrowing of the prosthetic valve. ABDOMEN: Rounded. EXTREMITIES: Distal pulses well felt. No significant edema. NEUROLOGIC: No focal neuro deficit is documented. LABORATORY DATA: Showed elevated troponin. EKG, regular sinus rhythm with nonspecific ST-T wave changes. IMPRESSION: Transient ischemic attack manifestation, troponin elevation, rule out acute coronary ischemic event, although history is not very specific for the same. Rule out arrhythmia, especially post-prosthetic valve insertion high incidences of heart block and at her age 80, underlying conduction system abnormality has to be excluded. PLAN: At this time, we will admit the patient. Serial EKG and troponins and clinical followup. Add aspirin, Plavix and neuro checks, and further management depends on the clinical course. Josep Mendoza MD DR: CAMILLA/RHONA TID: [id number] RECEIPT: [id number]
[2021-10-15] MEDS ORDERED: COREG PO SCH (21:00)
[2021-10-15] MEDS ORDERED: ROBAXIN ONE (22:27)
[2021-10-15] MEDS ORDERED: TYLENOL ONE (22:29)
[2021-10-15] MEDS ORDERED: ROBAXIN PO PRN (22:30)
[2021-10-15] MEDS ORDERED: TYLENOL PO PRN (22:30)
[2021-10-15] MEDS ORDERED: MELATONIN PO PRN (22:30)
[2021-10-16] VITALS (17 sets, daily range): BP systolic 95–157; BP diastolic 42–89
--- NOTE | 2021-10-16 08:30 | NUR ---
STATUS DR SAUER CALLED AND STATED TO MAKE PT NPO. PT CURRENTLY EATING BREAKFAST. INFORMED PT EATING STATES WILL DO HEART CATH WITH LOOP RECORDER 2 HOURS AFTER EATING. PT INFORMED OF PROCEDURE, QUESTIONS ANSWERED, VOICED UNDERSTANDING, PACKING MACHINE INSPECTOR NOTIFIED TO SCHEDULE PROCEDURE
[2021-10-16] MEDS ORDERED: ASPIRIN PO SCH (09:00)
[2021-10-16] MEDS ORDERED: LASIX PO SCH (09:00)
[2021-10-16] MEDS ORDERED: LIPITOR PO SCH (09:00)
[2021-10-16] MEDS ORDERED: COZAAR PO SCH (09:00)
[2021-10-16] MEDS ORDERED: PROTONIX PO SCH (09:00)
[2021-10-16] MEDS ORDERED: PLAVIX PO SCH (09:00)
[2021-10-16] MEDS ORDERED: SINGULAIR PO SCH (09:00)
[2021-10-16] MEDS ORDERED: MAG-OX PO SCH (09:00)
[2021-10-16] MEDS ORDERED: VITAMIN D PO SCH (09:00)
[2021-10-16] MEDS ORDERED: CLARITIN PO SCH (09:00)
[2021-10-16] MEDS ORDERED: KLOR-CON 10 PO SCH (09:00)
[2021-10-16] MEDS ORDERED: LANOXIN PO SCH (09:00)
--- NOTE | 2021-10-16 09:01 | NUR ---
MEDS PER DR SAUER HOLD ALL MORNING MEDS
[2021-10-16] MEDS ORDERED: NS 1000ML 1,000 ML ONE ×2 (09:29→10:39)
[2021-10-16] MEDS ORDERED: HEPARIN ONE (09:30)
[2021-10-16] MEDS ORDERED: VERSED ONE (09:30)
[2021-10-16] MEDS ORDERED: XYLOCAINE ONE (09:30)
[2021-10-16] MEDS ORDERED: SUBLIMAZE ONE (09:30)
--- NOTE | 2021-10-16 10:30 | NUR ---
STATUS DR SAUER IN TO SEE PT AND DISCUSS PROCEDURE, QUESTIONS ANSWERED. VOICED UNDERSTANDING TO ANALYTICAL SCIENTIST VIA STRETCHER ACCOMPANIED BY Sammy FRENCH RN AND Tanya RIOS RN
--- NOTE | 2021-10-16 11:45 | NUR ---
PT RETURNED FROM [facility], CONTINUES ON RA WITH SAT 96/%, PT GROGGY BUT ORIENTED X 3, NO RESP DISTRESS NOTED. ASSISTED WITH GETTING PT TRANSFERRED TO ICU BED. Addendum: 10/16/21 at 1155 by ISELA THORNTON PIANO CASE AND BENCH ASSEMBLER RT Amended: Links added.
[2021-10-16] MEDS ORDERED: CLOP75TA PO (11:57)
[2021-10-16] MEDS ORDERED: ZOFRAN ONE (12:13)
[2021-10-16] MEDS ORDERED: ZOFRAN IV PRN (12:30)
--- NOTE | 2021-10-16 13:10 | NUR ---
DR CAMACHO SAUER AT BEDSIDE. PT C/O NAUSEA. NEW ORDER FOR ZOFRAN,
--- NOTE | 2021-10-16 14:07 | DIET.OP ---
Nutrition Asmt/Malnutrit 2-17 Actual Date of Review: Oct 16, 2021 Actual Time Reviewed Asmt: 13:59 Nutritional Screening: Nutritional Screening Diagnosis: TIA, Incresdd Trpponin lab Pertinent Medical Hx/Surgical: HTN, Heart Disese, Chronic Diastolic Heart Failure, Asthma, Subjective Information: 80 yo female, daughter brought in because patient had an episode of confusion, disoriented for about 45 minutes and wanted to find out what was happening. Upon arrival she was awake, alert and oriented, has high troponin labs. Current Diet Order/Nutrition S: 2 gm Na+ Patient /S.O: Not Indicated Pertinent Meds Tylenol, Aspirin, Lipitor, Coreg, Vit D3, Lasix, KCL, Cozaar, Mag-Ox, Protonix Pertinent Labs Hgb 12.1, Hct 41.2, Na+ 142, K+ 4.1, BUN 30H, Glu 109, Ca+ 9.1, Alb 3.8 Height (Inches): 64 Current Weight: 184 %IBW: 154 Recent Weight Change: No Weight Status: Obese GI Symptoms: None Food Allergies: No Cultural/Ethnic/Anabaptism Yasmine: unable to obtain Skin Integrity/Comment: Yes Current %PO: Fair(50-74%) (55% x 2 meals, Dinner 100%, Breakfast 10%) BEE in Kcals: Use Current Weight Calories/Kcals/K-20 Kcals Calculated: 0095-2198 Protein: Use Current Weight Protein g/k.0-1.2 Protein Calculated: 84-100 Fluid: ml: 8820-8214 (25-30) or per md orders Nutritional Problem: No Cur. Nutritional Probl (PO intake meets needs) Fluid Accumulation (N/A): N/A Reduced Mortar Maker Strength (N/A): N/A Protein-Calorie Malnutrition: N/A Is there a minimum of two crit: No Malnutrition Related to Morbid: No RD Comments: No nutrition recommendations at this time Expected Outcomes Stable w/adequate hydration, skin integrity, labs WNL, nutrition needs met within 3 days. Malnutrtion/Nutrition Risk Edu: No low nutrition risk MD Notificiation Needed?: No YULIANA PEREIRA Oct 16, 2021 14:07
--- NOTE | 2021-10-16 14:29 | NUR ---
STATUS NAUSEA SUBSIDED, SITTING UP IN BED TO EAT REGULAR DIET, REPORTS NO LONGER HAS HEADACHE,
--- NOTE | 2021-10-16 14:45 | NUR ---
AMBULATE PT AMBULATED TO BATHROOM, VOIDED WITHOUT DIFFICULTY. BACK TO ROOM WITHOUT DIFFICULTY, SITTING UP IN CHAIR
--- NOTE | 2021-10-16 15:30 | NUR ---
DISCHARGE DISCHARGE INSTRUCTIONS GIVEN AND QUESTIONS ANSWERED. VOICED UNDERSTANDING, DISCHARGED VIA W/C TO PRIVATE VEHICLE IN APPARENT STABLE CONDITION
--- NOTE | 2021-10-16 20:22 | DSH ---
DATE OF DISCHARGE: 10/16/2021 DICTATOR NAME: Josep Mendoza MD FINAL DIAGNOSES: Lapse of memory, dizziness, near syncope, sensorium changes, possible TIA manifestations, normal CTA and CT of the head with contrast, troponin elevation, possibility of non-ST elevation myocardial infarction, normal coronary angiogram on heart catheterization, BioMonitor III Biotronik loop recorder inserted, bioprosthetic Bovine aortic valve for aortic stenosis, hypertension, hypertensive heart disease, chronic diastolic heart failure. Please refer to my history and physical to the point of my impression.. HOSPITAL COURSE: The patient is an 80-year-old white female who has had a bioprosthetic aortic valve for over 10 years for aortic stenosis and she has hypertension, hypertensive heart disease, has had intermittent dizziness, lightheadedness and on 10/14/2021 on she had a lapse of memory for 45-minute period where she "does not remember what happened" and she may have had a transient loss of consciousness and she was sitting in a chair and she slumped over. Family history is positive for sudden cardiac , daughter of arrhythmias, very positive family history of coronary artery disease and hence the patient had a troponin of over 200. EKG showed nonspecific ST-T wave changes. Serial EKGs, enzymes were done. Troponin was elevated on 3 occasions. The patient underwent cardiac catheterization on 10/16/2021 normal coronaries were noted. Right coronary catheter was slipped through the valve and no gradient across the aortic valve of significant degree and BioMonitor III Biotronik loop recorder was inserted in the left pectoral region and monitoring will be done. The patient was discharged on Plavix 75 mg once a day, presuming she had a TIA, arrhythmias are major concern; aspirin 81 mg once a day, Lipitor 20 mg once a day, Coreg 6.25 mg twice a day, D3 2000 international units daily, Lanoxin 0.125 mg daily, Pepcid 20 mg once a day, ferrous sulfate 47.5 mg twice a day, Lasix 20 mg once a day, loratadine 10 mg once a day, losartan 25 mg once a day, magnesium 250 mg once a day, Soma compound 500 mg at bedtime on p.r.n. basis of muscle spasm, Singulair 10 mg once a day, potassium 20 mEq once a day, Ultram 50 mg on p.r.n. basis for pain, Nasacort for nasal allergy. Ibuprofen was stopped. She will see me in my office on . Keflex 500 mg twice a day for 4 days was called in and will see her back in 2 weeks. Josep Mendoza MD DR: CLAIRE TID: [id number] RECEIPT: [id number]
--- NOTE | 2021-10-16 23:53 | CCRH ---
DATE OF SERVICE: 10/16/2021 DICTATOR NAME: Josep Mendoza MD HEART CATH REPORT IDENTIFICATION: An 80-year-old female. PRECATHETERIZATION DIAGNOSES: Non-ST elevation myocardial infarction, troponin elevation, and nonspecific EKG changes, syncope, near syncope, transient ischemic attack manifestations, history of chest pain. POSTCATHETERIZATION DIAGNOSES: Left main is fair size vessel, fully patent, tortuous type 3. Left anterior descending, fully patent with diagonal branch is patent. Circumflex good size vessel. The obtuse marginal branch, fully patent. The LV gram was not done because the patient has a bioprosthetic bovine aortic valve for aortic stenosis and the right coronary catheter did slip into the LV and no gradient across the aortic valve was documented. LV gram was not done. ANESTHESIA: 2% lidocaine in the right groin. PREOPERATIVE MEDICATIONS: Phenergan 50 mg p.o., Valium 2.5 mg p.o., fentanyl 50 mcg IV, and Versed 2 mg IV. ANTICOAGULATION: Heparin 2000 units intra-arterially, 2000 units in the flush solution, 1000 units in dye solution. DYE USED: Omnipaque. Total amount is 75 mL Catheter JL4 6-Djiboutian, 5-Djiboutian right neuro catheter. ARTERIAL TIME: 7 minutes. FLUOROSCOPY TIME: 2.1 minutes. PROCEDURES: Left heart catheterization, bilateral selective coronary arteriography, measurement of gradient across the left ventricle. No left ventriculography was done. NARRATION OF PROCEDURE: Under local anesthesia, the right femoral artery was punctured and tortuosity was noted. A guidewire was passed into the right femoral artery, followed by introduction of a 7-Djiboutian Cordis sheath after predilatation with a 5-Djiboutian sheath because of significant scar tissue. The side port of the sheath was used for continuous monitoring of femoral artery pressure. Subsequently, a JR4 6-Djiboutian right coronary catheter was utilized for selective cannulation of the right coronary artery and subsequently vein graft to the first obtuse marginal branch and attempts were made to cannulate the CABRERA graft without success and subsequently multiple other catheters were exchanged. Tortuosity did not allow for selective cannulation of the CABRERA graft. Subsequently, JL4 6-Djiboutian left Lydia coronary catheter with a curve was used to cannulate the left coronary artery and left coronary arteriography performed in UKRAINIAN and BRYANT projections with craniocaudal angulation for adequate visualization of all the branches. This catheter was then exchanged with 6-Djiboutian angled pigtail catheter, navigated across the aortic valve into the left ventricle and LVEDP measured and left ventriculography was performed in 30-degree BRYANT view with 30 mL of Isovue at 12 mL per second at 600 psi. The patient tolerated the procedure well. Catheter was pulled back into the ascending aorta and ascending aortic cineangiography was performed with visualization of both patent carotids and the tortuosity of the subclavian was documented. The patient tolerated the procedure well. No complication of procedures. Mynx control closure device was used. Aortic pressure 127/59 with a mean of 85, LV pressure was noted with a LVEDP of 5-10 mm with no gradient across the aorta on pullback of the central catheter. FINAL CONCLUSION: Normal coronary angiogram. No gradient across the aortic valve. Bovine bioprosthetic aortic valve for aortic stenosis. Aortic root cineangiography was not done. The patient does not have any significant aortic incompetence by echo in view of her symptoms of near syncope and transient, maybe loss of consciousness, possibility of TIA is also considered, but a CTA and CT of the head with contrast was unremarkable. Loop recorder was placed. Josep Mendoza MD DR: CAMILLA/JARAD TID: [id number] RECEIPT: [id number]
--- NOTE | 2021-10-17 06:55 | PRP ---
DATE OF PROCEDURE: 10/16/2021 DICTATOR NAME: Jsoep Mendoza MD PROCEDURE PERFORMED: Loop recorder insertion. PREOPERATIVE DIAGNOSIS: Syncope, pre-syncope, collapse. DEVICE IMPLANT: BioMonitor III Biotronik, serial #[id number]. Settings bradycardia less than 40, tachycardia greater than 150 beats per minute, pauses greater than 3 seconds to be detected. ESTIMATED BLOOD LOSS: 1 mL. DETAILS OF THE PROCEDURE: Risks, benefits of the procedure have been explained in detail to the patient. Under sterile precautions, the left chest wall in the infraclavicular region and in the precordial region was anesthetized with 2% lidocaine. The patient was given fentanyl 25 mcg IV and subsequently an incision was made in the 3rd and 4th intercostal space using the blade. A small pocket was created with implant to approximately 8 mm under the skin. Fit one-step tool was inserted and a BMI 3 ____ was implanted. Hemostasis was obtained. Metal clips were applied. No complication of the procedure and monitoring to be continued. Josep Mendoza MD DR: CAMILLA/SHRUTHI/ALICIA TID: [id number] RECEIPT: [id number]
--- NOTE | 2021-10-17 13:48 | DIREP ---
PROCEDURE: CTA HEAD NECK CT-CTA HEAD W/WO CONTRAST COMPARISON: [facility], CT, CT HEAD BRAIN W/O CONTRAST, 10/15/2021, 11:11 AM. [facility], CR, XRAY CHEST SINGLE VW, 10/15/2021, 11:12 AM. INDICATIONS: TIA TECHNIQUE: Following the rapid infusion of intravenous contrast, 1.3 mm axial CTA images were obtained through the head and neck. Multiplanar and 3-D reconstructions were performed from source images. FINDINGS: NECK CTA: AORTIC ARCH: Normal configuration. RIGHT CAROTID: Unremarkable, except for mild atherosclerotic changes. LEFT CAROTID: Unremarkable, except for mild atherosclerotic changes. VERTEBRAL ARTERIES: Unremarkable. NECK TISSUES: Unremarkable. LUNGS: Unremarkable. MEDIASTINUM: Unremarkable. BONE: Unremarkable, except for degenerative changes of the spine. HEAD CTA: INTERNAL CAROTIDS: Unremarkable. ANTERIOR CEREBRALS: Unremarkable. MIDDLE CEREBRALS: Unremarkable. VERTEBRALS/BASILAR: Unremarkable. POSTERIOR CEREBRALS: Unremarkable. PCOMMS: Present bilaterally. HEAD SOFT TISSUES: Unremarkable. SINUSES: Prominent bilateral chronic maxillary sinusitis. Please note that this examination was not tailored for evaluation of the brain parenchyma. CONCLUSION: No hemodynamically significant stenosis. No large vessel occlusion, aneurysm, or AVM. Chronic changes are noted. Dictated by: Leo Garcia M.D. on 10/15/2021 at 02:02 PM HA
--- NOTE | 2021-10-18 07:54 | PCM.EKG ---
[facility] Test Date: 2021-10-16 Test Time: 07:52:14 Pat Name: MITCH WINKLER Department: Room: ICU7 A Gender: F Die Maker Trim: : 1940 Requested By: ABEL SAUER Order Number: [id number] Reading MD: Measurements Intervals [place] Rate: 67 P: 51 WI: 157 QRS: 18 QRSD: 95 T: 26 QT: 439 QTc: 464 Interpretive Statements Sinus rhythm Baseline wander in lead(s) V5 Compared to ECG 10/15/2021 17:46:05 Myocardial infarct finding no longer present Please click the below link to view image of tracing.
--- NOTE | 2021-10-18 07:54 | PCM.EKG ---
[facility] Test Date: 2021-10-15 Test Time: 17:46:05 Pat Name: MITCH WINKLER Department: Room: ICU7 A Gender: F Guest Services Assistant: : 1940 Requested By: ABEL SAUER Order Number: [id number] Reading MD: Measurements Intervals [place] Rate: 69 P: 48 NV: 149 QRS: 11 QRSD: 96 T: 17 QT: 409 QTc: 438 Interpretive Statements Sinus rhythm Inferior infarct, old No previous ECG available for comparison Please click the below link to view image of tracing.
== END 2021-10-16 | disposition home or self-care (01) ==
LOC: ER 09:47 → ICU 12:30 → UNDOADMIN 12:30 → SDC 10-16 12:30 → UNDODISIN 10-16 15:30
PROVIDERS: ATTEND Specialist
DX: I25.10 Atherosclerotic heart disease of native coronary artery without angina pectoris (principal); Z20.822 Contact with and (suspected) exposure to COVID-19; R55 Syncope and collapse; I11.0 Hypertensive heart disease with heart failure; J45.909 Unspecified asthma, uncomplicated; I50.32 Chronic diastolic (congestive) heart failure; E78.00 Pure hypercholesterolemia, unspecified; Z90.710 Acquired absence of both cervix and uterus; Z79.82 Long term (current) use of aspirin; Z79.899 Other long term (current) drug therapy; Z98.890 Other specified postprocedural states; Z79.01 Long term (current) use of anticoagulants
CPT/HCPCS: 33285; 36415 ×2; 70450; 70496; 70498; 71045; 80053; 81003; 82550; 84484 ×3; 85025; 85610; 85730; 87426; 87633; 93005 ×3; 93458; 99152; 99153; 99285; C1760; C1764; C1894 ×3; J1200; J1644 ×2; J2250; J2405; J3010; J3490; J7030 ×2; Q9967 ×2; 93454; G0378; C1769

== ENCOUNTER 2021-12-22 16:27 | Inpatient (IN) | payer MEDICARE ==
[~2021-12-22] VITALS: Ht 162.6 cm; Wt 85.8 kg
[2021-12-22] VITALS (27 sets, daily range): BP systolic 103–173; BP diastolic 45–85
[~2021-12-22 16:27] MED LIST changes: +CLOP75TA PO
[2021-12-22] MEDS ORDERED: ATIVAN PO STA (16:58)
[2021-12-22] MEDS ORDERED: PLAVIX PO STA (16:58)
[2021-12-22] MEDS ORDERED: PROTONIX PO STA (16:58)
[2021-12-22] MEDS ORDERED: ASPIRIN PO STA (16:58)
--- NOTE | 2021-12-22 17:14 | PCM.EKG ---
[facility] Test Date: 2021-12-22 Test Time: 17:12:33 Pat Name: MITCH WINKLER Department: Room: ICU4 A Gender: F Document Specialist: : [id number] Requested By: ABEL SAUER Order Number: [id number] Reading MD: Measurements Intervals [place] Rate: 68 P: 55 RI: 160 QRS: 4 QRSD: 97 T: 5 QT: 446 QTc: 475 Interpretive Statements Sinus rhythm Atrial premature complex Probable left ventricular hypertrophy Inferior infarct, old Compared to ECG 10/16/2021 07:52:14 Atrial premature complex(es) now present Myocardial infarct finding now present Please click the below link to view image of tracing.
[2021-12-22] MEDS ORDERED: HEPARIN IV STA (17:16)
[2021-12-22 17:18] LABS: BASOPHIL # 0.1 10^3/uL (0.0-0.1); BASOPHIL % 0.6 % (0.0-0.2); EOSINOPHIL # 0.2 10^3/uL (0.0-0.2); EOSINOPHIL % 2.6 % (0.0-5.0); LYMPHOCYTES # 1.89 10^3/uL1 (1.0-4.8); LYMPHOCYTES % 24.1 % (24.0-44.0); MEAN CORP HGB 30.1 pg (26-34); MONOCYTES # 0.6 10^3/uL (0.3-0.8); MONOCYTES % 7.2 % (5.0-12.0); NEUTROPHIL # 5.1 10^3/uL (1.8-7.7); NEUTROPHILS % 65.5 % (41.0-85.0); PLATELET COUNT 212 10^3/uL (150-400); RED CELL DISTRIBUTION WIDTH 13.1 % (11.5-14.5)
[2021-12-22] MEDS: HEPARIN-D5W 20,000 UNIT/500 ML 500 ML IV SCH (17:34)
--- NOTE | 2021-12-22 17:53 | DIREP ---
PROCEDURE:CHEST 2 VIEWS COMPARISON:[facility], CR, XRAY CHEST SINGLE VW, 10/15/2021, 11:12 AM. INDICATIONS:chf FINDINGS: LUNGS/PLEURA:Low lung volumes with presumed senescent changes. No confluent airspace consolidation, pleural effusion or pneumothorax is identified. VASCULATURE:No pulmonary vascular congestion. CARDIAC:The heart is not significantly enlarged for technique. Apparent cardiac valve prosthesis. Cardiac loop recorder noted. MEDIASTINUM:Previous midline sternotomy. Mediastinal contours appear within acceptable limits. BONES:Mild degenerative changes of the spine. OTHER:Negative. CONCLUSION: 1. Low lung volumes with presumed senescent changes. No acute cardiopulmonary abnormality is identified. There is no overt pulmonary vascular congestion to suggest active CHF/fluid overload. Dictated by: Alfonso Bruce M.D. On 12/22/2021 at 05:51 PM
[2021-12-22 18:09] LABS: CARBON DIOXIDE 25.8 mmol/L (20.0-32)
[2021-12-22 18:52] LABS: BILIRUBIN,URINE NEGATIVE (NEGATIVE); UROBILINOGEN,URINE 0.2 E.U./dL (0.2)
--- NOTE | 2021-12-22 19:15 | NUR ---
DR BUENO AT BEDSIDE EXPLAINED TO PT PLAN OF CARE FOR MRA AND EDITH TOMORROW 12/23. PT VERBALIZED UNDERSTANDING, CONSENTS SIGNED.
[2021-12-22] MEDS: LIPITOR PO SCH (20:20)
[2021-12-22] MEDS: BETAPACE PO SCH (20:20)
[2021-12-22] MEDS: SINGULAIR PO SCH (20:20)
[2021-12-23] VITALS (93 sets, daily range): BP systolic 86–151; BP diastolic 34–84
--- NOTE | 2021-12-23 00:37 | NUR ---
aPTT LAB RESULTS FOR aPTT = 60.[address] SAUER'S PREFERRED RANGE. NO CHANGES MADE TO DRIP AT THIS TIME. WILL RECHECK aPTT AT 0330.
--- NOTE | 2021-12-23 01:06 | NUR ---
OXYGEN SATURATION PT DESATURATING TO 87%, PLACED ON 2L NC, NOTIFIED SAUL RT.
--- NOTE | 2021-12-23 04:09 | NUR ---
aPTT RESULTED 50.6, HEPARIN DRIP INCREASED BY 100 units/hr PER PROTOCOL. WITNESSED BY SLOAN WOOD. NOW RUNNING AT 900 units/hr (22.5 mL/hr)
[2021-12-23] MEDS: HEPARIN-D5W 20,000 UNIT/500 ML 500 ML IV SCH ×3 (07:50→15:33)
--- NOTE | 2021-12-23 07:50 | NUR ---
HEPARIN INCREASED APTT 51, HEPARIN INCREASED TO 1000 UNITS/HOUR PER PROTOCOL.
[2021-12-23] MEDS ORDERED: CETACAINE SPRAY TP ONE (07:56)
[2021-12-23] MEDS ORDERED: VERSED ONE (07:57)
[2021-12-23] MEDS ORDERED: SUBLIMAZE ONE (07:57)
--- NOTE | 2021-12-23 08:15 | NUR ---
DISCHARGE PLAN CM AT BEDSIDE TO VISIT WITH PATIENT AND HER DAUGHTER REGARDING DISCHARGE PLAN. PATIENT LIVES AT HOME ALONE. SHE HAS 5 CHILDREN AND SEVERAL GRANDCHILDREN WHO LIVE WITHIN A 30 MILE RADIUS AND ARE VERY SUPPORTIVE. HER PCP IS Nicholas GARCIA. SHE HAS A SC, CANE , WALKER, AND RIGHT ORTHOTIC BOOT. CM EDUCATED ON HOME HEALTH AND PATIENT DENIED ADDITIONAL NEEDS AND RESOURCES AT THIS TIME. PATIENT EXPLAINED THAT SHE IS HAVING VISION LOSS IN HER RIGHT EYE AND IT HAS OCCURRED 6 TIMES OVER A 3 WEEK PERIOD. SHE DENIED ANY RIGHT SIDED WEAKNESS. SHE WAS SEEN BY AN RECEPTION INTERVIEWER AND THEY DID NOT FIND A CAUSE AND SUSPECT A BLOOD CLOT. SHE WAS ADVISED TO FOLLOW UP WITH MEDIA CENTER ASSISTANT DR SAUER. PATIENT DENIED FURTHER NEEDS. DISCHARGE PLAN IS FOR PATIENT TO D/C BACK HOME TO ROUTINE CARE WITH SUPPORT OF HER FAMILY.
--- NOTE | 2021-12-23 08:30 | NUR ---
EDITH BEDSIDE REPORTING GIVEN TO KIMBERLY LISA FROM METER RECORD CLERK. PATIENT TRANSFERRED FROM BED TO TRANSPORT [facility] WITHOUT ASSISTANCE AND WITHOUT DIFFICULTY. TRANSPORTED TO METER RECORD CLERK.
[2021-12-23] MEDS ORDERED: NS 250ML 250 ML ONE (08:52)
[2021-12-23] MEDS: VITAMIN D PO SCH (09:00)
--- NOTE | 2021-12-23 09:19 | NUR ---
Back to ICU: Pt arrived back to ICU 127/67, HR 62, RR 18, O2sat 93%. Pt is alert and oriented, declines chest pain/discomfort.
[2021-12-23] MEDS: COZAAR PO SCH (10:47)
[2021-12-23] MEDS: TOPROL XL PO SCH (10:48)
[2021-12-23] MEDS: BETAPACE PO SCH ×2 (10:48→20:33)
[2021-12-23] MEDS: KLOR-CON 10 PO SCH (10:48)
[2021-12-23] MEDS: MAG-OX PO SCH (10:48)
[2021-12-23] MEDS: LASIX PO SCH (10:49)
--- NOTE | 2021-12-23 11:00 | NUR ---
MRI Pt transported to MRI via w/c by radiology. Pt alert and oriented declines pain/discomfort. VS WNL.
--- NOTE | 2021-12-23 11:50 | NUR ---
RETURN RETURNED FROM MRI VIA WHEEL CHAIR. CONNECTED TO BEDSIDE MONITORING. VITAL SIGNS OBTAINED, STABLE. LUNCH SERVED. DENIES NEEDS OR CONCERNS. NO S/S OF ACUTE DISTRESS NOTED.
--- NOTE | 2021-12-23 13:41 | DIREP ---
PROCEDURE:MRA HEAD W/O CONTRAST COMPARISON:None. INDICATIONS:EMBOLIC OCCLUSION TECHNIQUE:MR angiography was performed in the usual manner yielding 3D reconstructed images of the cerebral arteries. FINDINGS: INTERNAL CAROTIDS:No visible stenosis or aneurysm. ANTERIOR CEREBRALS:No visible stenosis or aneurysm. MIDDLE CEREBRALS:No visible stenosis or aneurysm. POSTERIOR CEREBRALS:No visible stenosis or aneurysm. BASILAR:No visible stenosis or aneurysm. VERTEBRALS:No visible stenosis or aneurysm. OTHER:Bimaxillary sinusitis. Negative with no evidence of a vascular malformation. CONCLUSION:Bimaxillary sinusitis. No stenosis, occlusion, or aneurysm PLEASE NOTE that a normal brain MRA does not entirely exclude the possibility of small aneurysm, or the possibility of distal intracranial vessel disease. Dictated by: Gil Ragsdale DO on 12/23/2021 at 01:31 PM
--- NOTE | 2021-12-23 15:31 | CNH ---
DATE OF CONSULTATION: 12/22/2021 DICTATOR NAME: CHRISTOS BUENO DO REASON FOR CONSULTATION: Evaluation for transesophageal echocardiogram in the setting of possible TIA/vision impairment/cognitive dysfunction. HISTORY OF PRESENT ILLNESS: This is an 81-year-old female who apparently has been experiencing vision changes intermittently for the last few weeks. She has also been experiencing transient memory lapses as well as cognitive dysfunction. She was evaluated by an organ grinder and a suspicion for possible thrombotic event was noted. She has a history of paroxysmal atrial fibrillation. She sees Dr. Mendoza as her primary pants cutter. I have been consulted to perform a transesophageal echocardiogram to rule out thrombus in the left atrium or left atrial appendage. She also has a history of a bioprosthetic aortic valve. A EDITH would be necessary to evaluate her bioprosthetic aortic valve for possible thrombus as well. PAST MEDICAL HISTORY: Significant for: 1. Aortic stenosis, status post bioprosthetic AVR done 6 years ago. 2. Hypertension. 3. Chronic diastolic heart failure. 4. Paroxysmal atrial fibrillation. PAST SURGICAL HISTORY: Status post bioprosthetic aortic valve replacement done 6 years ago. Cardiac catheterization done 09/2021 revealed nonobstructive CAD. ALLERGIES: SHE IS ALLERGIC TO IODINE WELL CODEINE. SOCIAL HISTORY: She denies tobacco use, denies alcohol use, denies illicit drug use. FAMILY HISTORY: She admits to a family history of premature coronary artery disease as well as sudden cardiac . REVIEW OF SYSTEMS: As per HPI and as per previous records. All systems reviewed and negative for interval change. PHYSICAL EXAMINATION: VITAL SIGNS: Blood pressure is 145/54, respiratory rate is 16, pulse is 64, pulse oximetry is 96% on room air. GENERAL: She is in no apparent distress, alert and oriented x 3. HEENT: Normocephalic, atraumatic. Extraocular muscles intact. Pupils equally round, reactive to light and accommodation. CARDIOVASCULAR: S1, S2, +2/6 crescendo decrescendo murmur. No gallops, rubs or clicks. LUNGS: Clear to auscultation bilaterally. No wheezing, rhonchi or rales. ABDOMEN: Soft, nontender, nondistended. Positive bowel sounds in all 4 quadrants. EXTREMITIES: No cyanosis, no clubbing, no edema, +2 pedal pulses palpable bilaterally. NEUROLOGIC: No neurological deficits. Sensation is intact. IMPRESSION: 1. Recurrent transient vision losses with high suspicion of a vascular thrombotic event. 2. Memory lapses and cognitive dysfunction. 3. Possible transient ischemic attack. 4. Status post bioprosthetic aortic valve replacement done 6 years ago. 5. Hypertension. 6. Chronic diastolic heart failure. 7. Paroxysmal atrial fibrillation. 8. Family history of premature coronary artery disease or sudden cardiac . 9. Nonobstructive coronary artery disease by left heart catheterization done 09/2021. RECOMMENDATIONS: This is an 81-year-old female who has been experiencing recurrent transient vision losses that has been deemed to be likely secondary to vascular thrombotic event by her organ grinder. She has a history of paroxysmal atrial fibrillation and is on oral anticoagulation at home. She also reports memory lapses with cognitive dysfunction with a suspicion for a transient ischemic event. She has a history of aortic stenosis, status post bioprosthetic aortic valve replacement done 6 years ago. I have been consulted to perform transesophageal echocardiogram to evaluate for thrombus in the left atrium or left atrial appendage as well as to assess the integrity of the heart valves. She will be set up for transesophageal echocardiogram in the morning. She will be placed n.p.o. after midnight. The risks versus benefits of the procedure have been explained to her in great detail. She verbalized understanding and is agreeable with the plan of care. Informed consents have been obtained. She is currently on heparin drip. Brianne CORTES, D.OJojo PARKS TID: [id number] RECEIPT: [id number]
[2021-12-23] MEDS: SINGULAIR PO SCH (20:32)
[2021-12-23] MEDS: LIPITOR PO SCH (20:33)
--- NOTE | 2021-12-23 21:37 | NUR ---
ptt was 71.5 at 2034 which is therapuetic so no rate change at this time. will repeat ptt in four hours.
--- NOTE | 2021-12-23 23:12 | PCM.ECHO ---
APPROVED REPORT EXAM: Transesophageal echocardiogram with color flow Doppler. Patient Location: IN-PATIENT Indications TIA, checking for thrombus PROCEDURE After obtaining informed consent, patient underwent transesophageal echo in the [employer]. Type of Sedation : Conscious Sedation Sedation was provided by anesthesiologist. Sedation was administered by Nursing Staff. Sedation was achieved with Versed, Fentanyl intravenously. Transesophageal probe was inserted and advanced into esophagus without difficulty by Dr. Hernández. The EDITH was performed without complications. Throughout the procedure, the blood pressure, pulse oximetry, cardiac rhythm, and rate were monitored. The patient tolerated the procedure without adverse effects. Recovery from conscious sedation was uneventful and vital signs were stable. LEFT VENTRICLE The left ventricle is normal size. The left ventricular systolic function is normal. The left ventricular ejection fraction is within the normal range. There is normal left ventricular wall thickness. There is normal LV segmental wall motion. There is no ventricular septal defect visualized. No left ventricle thrombus noted on this study. LVEF is 60%. RIGHT VENTRICLE The right ventricle is normal size. The right ventricular systolic function is normal. There is normal right ventricular wall thickness. ATRIA Left atrium is severely dilated. No thrombus is visualized in the left atrium or appendage. The right atrium size is normal. The interatrial septum is intact with no evidence for an atrial septal defect. AORTIC VALVE There is no aortic valvular stenosis. No aortic regurgitation is present. There is no aortic valvular vegetation. Bioprosthetic aortic valve is present. Prosthetic aortic valve opening is normal. No thrombus on the prosthetic aortic valve. MITRAL VALVE The mitral valve is normal in structure. Moderate mitral annular calcification. There is no mitral valve stenosis. Mild to moderate mitral regurgitation. There is no evidence of mitral valve vegetations. TRICUSPID VALVE The tricuspid valve is normal in structure. There is no tricuspid valve stenosis. Mild tricuspid regurgitation. There is no tricuspid valve vegetations. PULMONIC VALVE The pulmonary valve is normal in structure. There is no pulmonic valvular stenosis. Mild pulmonic regurgitation. There is no pulmonic valve vegetations. GREAT VESSELS The aortic root is normal in size. No apparent thoracic aortic dissection. No Atheromatous plaque is visualized in the thoracic aorta PERICARDIUM There is no pericardial effusion. CONCLUSION The left ventricular systolic function is normal. LVEF is 60%. Left atrium is severely dilated. No thrombus is visualized in the left atrium or appendage. Bioprosthetic aortic valve is present. Prosthetic aortic valve opening is normal. No thrombus on the prosthetic aortic valve. Mild to moderate mitral regurgitation. Mild tricuspid regurgitation. Mild pulmonic regurgitation. No apparent thoracic aortic dissection. No Atheromatous plaque is visualized in the thoracic aorta <Conclusion> The left ventricular systolic function is normal. LVEF is 60%. Left atrium is severely dilated. No thrombus is visualized in the left atrium or appendage. Bioprosthetic aortic valve is present. Prosthetic aortic valve opening is normal. No thrombus on the prosthetic aortic valve. Mild to moderate mitral regurgitation. Mild tricuspid regurgitation. Mild pulmonic regurgitation. No apparent thoracic aortic dissection. No Atheromatous plaque is visualized in the thoracic aorta Electronically signed by : CHRISTOS HERNÁNDEZ. 12/23/2021 23:12:13
[2021-12-24] VITALS (28 sets, daily range): BP systolic 86–155; BP diastolic 41–93
[2021-12-24] MEDS: HEPARIN-D5W 20,000 UNIT/500 ML 500 ML IV SCH (06:45)
[2021-12-24] MEDS: MAG-OX PO SCH (08:08)
[2021-12-24] MEDS: TOPROL XL PO SCH (08:08)
[2021-12-24] MEDS: VITAMIN D PO SCH (08:08)
[2021-12-24] MEDS: BETAPACE PO SCH (08:08)
[2021-12-24] MEDS: KLOR-CON 10 PO SCH (08:09)
[2021-12-24] MEDS: LASIX PO SCH (08:09)
[2021-12-24] MEDS: COZAAR PO SCH (08:11)
[2021-12-24] MEDS ORDERED: APIX5TAB PO (10:59)
[2021-12-24] MEDS ORDERED: LOSA50TA2 PO (10:59)
[2021-12-24] MEDS ORDERED: SOTA80TA18 PO (10:59)
[2021-12-24] MEDS ORDERED: ATOR40TA PO (10:59)
--- NOTE | 2021-12-24 11:35 | HPH ---
ADMIT DATE: 12/22/2021 DICTATOR NAME: Josep Mendoza MD CHIEF COMPLAINT: Intermittent loss of vision of the right eye. HISTORY OF PRESENT ILLNESS: The patient is an 81-year-old white female who has a bioprosthetic aortic valve and has paroxysmal atrial fibrillation with a loop recorder placed for arrhythmias and she has normal coronary arteries and has had an episode of on and off right eye transient blindness considered to be TIA manifestations and she was admitted in [facility] for [address] and MRI done and she also saw the hospitalist eye doctor and is supposed to see a neurologist. She was told that she has had episodes of recurrent TIA and stroke and at this time she was on Xarelto 15 mg once a day, which was changed to Eliquis 5 mg twice a day along with aspirin 81 mg once a day, subsequently switched to Plavix 75 mg once a day and I saw her on 12/21/2021 and she had sudden increase in her symptomatology where her right eye went completely blind and I told her to take Plavix and aspirin and she called me today that the right eye was much worse. She does not have any other focal neuro deficits. It seems to appear embolic phenomenon and I talked to the neurologist, Dr. Vinson, who felt that treating her with IV full heparinization would help. She does not have any infarct on the CT scan. She has paroxysmal atrial fibrillation. No evidence of any thrombi were noted on the echo, but EDITH may be in order. ALLERGIES: IODINE DYE. Dye was [] to do the cardiac catheterization without any side effects. MEDICATIONS: She is on Eliquis 5 mg twice a day, potassium 20 mEq once a day, magnesium 200 mg once a day, ferrous sulfate 1 tablet daily, Pepcid 20 mg once a day. She is on metoprolol 50 mg once a day, started on sotalol 80 mg twice a day and she is on Lasix 20 mg once a day, Singulair 10 mg once a day, Plavix 75 mg once a day, Celebrex 200 mg once a day, Soma Compound, Flonase, losartan 25 mg once a day, atorvastatin 40 mg she is taking half tablet a day, loratadine 10 mg once a day, vitamin D3 2000 units daily. PAST MEDICAL HISTORY: History of bioprosthetic aortic valve replacement for her aortic stenosis, normal coronary arteries with recent cardiac catheterization when she came in with chest pain and troponin was mildly elevated, aortic prosthetic functional valve area is around 1 square cm and has been stable. 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 SOCIAL HISTORY: Quit smoking in 1981. No history of any ethanol abuse. No use of any drugs. FAMILY HISTORY: Positive for heart problems, diabetes and kidney disease. REVIEW OF SYSTEMS: Revealed blindness in the right eye with symptoms of dizziness and imbalance due to the symptoms of blindness. No chest pain. Some shortness of breath and occasional palpitations. PHYSICAL EXAMINATION: VITAL SIGNS: Temperature 97, blood pressure 140/70, pulse was 80, respirations 18, 5 feet 4 inches, 197 pounds and BMI of 33.8. HEENT: Unremarkable except for blindness in the right eye and there was no vision in the right eye. NECK: No JVD, no carotid bruits. No clicks of the prosthetic valve are heard. She has a bioprosthetic valve. LUNGS: Clear. HEART: Sounds are normal. Occasional irregularity was noted. ABDOMEN: Rounded. No organomegaly. NEUROLOGIC: No focal motor neuro deficit was documented. No sensory deficit was noted. Blindness in the right eye was noted. Distal pulses were palpable and no significant edema. IMPRESSION: Recurrent transient ischemic attack; amaurosis fugax; paroxysmal atrial fibrillation; embolic phenomenon; hypertension; hypertensive heart disease; chronic diastolic heart failure; bioprosthetic aortic valve, stable area of 1 square cm; history of aortic stenosis or aortic valve disease; hyperlipidemia. PLAN: At this time, admit the patient, IV heparinization, keep the partial thromboplastin time around 65 seconds, discontinue her Eliquis and we will continue aspirin and Plavix. Clinical followup. Neuro checks. We will keep her in ICU to assess any progression of neuro deficit. Further management depending on the clinical course. We will require MRA of the head to assess the vasculature of the brain and may do a EDITH to assess for any thrombus or clot in the left atrium. Josep Mendoza MD DR: CAMILLA/PIETRO/CLARIBEL TID: [id number] RECEIPT: [id number]
--- NOTE | 2021-12-24 12:15 | NUR ---
Discharge: Pt discharged per Dr. Mendoza. New prescriptions called into [facility] per pt request. Educated pt on discharge instructions and new medications prescribed, reviewed reportable s/s to physician. Educated on stroke, TIA, and fall precautions and safety. Instructed pt to take medications as directed and call Dr. Mendoza w/any questions. Pt daughter at bedside for discharge education. VS obtained and WNL for patient. Transferred pt off floor via w/c.
--- NOTE | 2021-12-24 12:23 | NUR ---
OFF UNIT PATIENT TRANSPORTED OFF UNIT VIA W/C BY Vira NEWMAN RN. NO ACUTE DISTRESS NOTED.
--- NOTE | 2021-12-25 00:59 | DSH ---
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 Please refer to my history and physical for the final impression. HOSPITAL COURSE: The patient is an 81-year-old female who has a bioprosthetic aortic valve for paroxysmal atrial fibrillation, was admitted in [facility] 2 days ago and she was noted to have blindness in the right eye and she had a full workup done and she got better, had been on Xarelto and aspirin and Plavix and probably having an embolic phenomenon and she came in with again recurrent TIA with total blindness and black feeling in the right eye, had total loss of vision. Full anticoagulation with Heparin was done to keep her therapeutic PTT around 65 seconds along with Plavix and aspirin. Significant improvement in vision is noted. EDITH done by Dr. Hernández showed no thrombus in the left atrium. Left atrial appendage was also clear. Interatrial septum was intact. LVH was noted. Bioprosthetic aortic valve prosthesis appears to be showing intact integrity with good opening of the valve. Right-sided chambers are normal. No significant valvular abnormality. LVH and intact LV systolic function noted and since the patient had an MRI and MRA of the head and they were also normal and since her vision improved, I think treatment is medical therapy. She will be seeing an eye doctor, but at this time, probably needs to be on Eliquis 5 mg twice a day, Plavix 75 mg once a day, aspirin 81 mg once a day and loop recorder interrogation did show that she is having significant atrial fibrillation burden, almost 25% atrial fibrillation burden and she was put on Lipitor 80 mg once a day, losartan 25 mg once a day. For her significant atrial fibrillation, was placed on sotalol 80 mg twice a day along with aspirin 81 mg once a day. Carvedilol 6.25 mg twice a day only if the blood pressure was 140/90 and above. Vitamin D 2000 units daily, Plavix 75 mg once a day, Pepcid 20 mg once a day, Lasix 20 mg daily, potassium 1 tablet daily, magnesium 250 mg once a day, several other p.r.n. medications, Singulair 10 mg once a day, potassium 20 mEq once a day. She has chronic sinusitis and placed on Augmentin 875 mg twice a day for 10-14 days. We will see her back in 2 weeks. Josep Mendoza MD DR: ABDIRAHMAN TID: [id number] RECEIPT: [id number]
--- NOTE | 2021-12-26 06:39 | PNH ---
DATE: 12/23/2021 DICTATOR NAME: Josep Mendoza MD SUBJECTIVE: The patient has almost 30-40% improvement in the vision in the right eye. The right eye was totally black. Now, she says that she [] she can see the outline of the object, which is an improvement. OBJECTIVE: VITAL SIGNS: Stable with pulse of 66, respirations 24 and 130/50 blood pressure, 94 saturation on room air. GENERAL: Her speech is normal. No focal neuro deficit except right eye blindness. NECK: No JVD, no carotid bruits. LUNGS: Clear. HEART: Sounds normal. EDITH was done by Dr. Hernández and the left atrium is enlarged, but appears to be normal, no cloud or any thrombus is noted. The atrial appendage is clear. The mitral valve integrity is intact. There is no evidence of any mitral regurgitation. The bioprosthetic aortic valve seems to be opening well. There is no evidence of any thrombus or vegetation and tricuspid valve is normal. The aorta appears to be normal. Thoracic aorta does not show any obvious plaques. It is hard to see cholesterol plaque anyway even on EDITH, but overall EDITH was normal. I am going to look at the records whether she had an MRI, which she did have of the brain, but MRA of the neck and the head is very important to assess for any atherothrombotic disease. IMPRESSION: Central retinal artery occlusion, right eye, embolic in nature, underlying history of paroxysmal atrial fibrillation, transient ischemic attack manifestations, prosthetic aortic valve, hypertension, hypertensive heart disease. PLAN: At this time, continue heparin, achieve PTT of 65 seconds, INR subtherapeutic around 51 seconds, increased to 1100 units per hour. Continue same therapy. We will continue heparin through the day and discharge planning by 12/24/2021. Josep Mendoza MD DR: CAMILLA/YAN/LASHONDA TID: [id number] RECEIPT: [id number]
== END 2021-12-24 12:15 | disposition home or self-care (01) | DRG 69 ==
LOC: ICU 16:27
PROVIDERS: ADMIT Specialist; ATTEND Specialist
PROC: B246ZZ4 Ultrasonography of Right and Left Heart, Transesophageal (ICD-10-PCS; principal; 2021-12-23 07:00)
DX: G45.9 Transient cerebral ischemic attack, unspecified (principal); H34.11 Central retinal artery occlusion, right eye; I50.32 Chronic diastolic (congestive) heart failure; I48.0 Paroxysmal atrial fibrillation; E78.5 Hyperlipidemia, unspecified; I11.0 Hypertensive heart disease with heart failure; I25.10 Atherosclerotic heart disease of native coronary artery without angina pectoris; Z20.822 Contact with and (suspected) exposure to COVID-19; I49.5 Sick sinus syndrome; J32.9 Chronic sinusitis, unspecified; Z79.01 Long term (current) use of anticoagulants; Z79.82 Long term (current) use of aspirin; Z79.899 Other long term (current) drug therapy; Z82.49 Family history of ischemic heart disease and other diseases of the circulatory system; Z83.3 Family history of diabetes mellitus; Z86.73 Personal history of transient ischemic attack (TIA), and cerebral infarction without residual deficits; Z87.891 Personal history of nicotine dependence; Z95.3 Presence of xenogenic heart valve
CPT/HCPCS: 36415; 70544; 70547; 71046; 80053; 81001; 83880; 85025; 85379; 85610; 85730; 87426; 93005; 93312; 93325; 99152; G0378; J1644; J2250; J3010; J3490; J7050; C8925

== ENCOUNTER → 2022-01-24 | Outpatient (CLI) | payer MEDICARE ==
[~2022-01-24] MED LIST changes: +ACET500T73 PO; +APIX5TAB PO; +ASCO100016 PO; +ATOR40TA PO; +CALC1TAB PO; +CEPH250C PO; +DIPH25TA64 PO; +DOFE125C PO; +FLUT100D2 IH; +LOSA50TA2 PO; +SOTA80TA PO; +SOTA80TA18 PO; +UBID100C23 PO; +VIT1TABL32 PO; +VITA25006 PO; +ZINC50TA42 PO; +[UNRECOGNIZED DRUG - CODE] PO; +[UNRECOGNIZED DRUG - CODE] PO
== END | disposition home or self-care (01) ==
LOC: NPLAB 14:37
PROVIDERS: ATTEND Specialist
DX: R05.9 Cough, unspecified (principal); Z20.822 Contact with and (suspected) exposure to COVID-19; R06.02 Shortness of breath
CPT/HCPCS: 87637

== ENCOUNTER → 2022-01-24 | Outpatient (CLI) | payer MEDICARE ==
[2022-01-24 13:52] LABS: MEAN CORP HGB 30.5 pg (26-34); RED CELL DISTRIBUTION WIDTH 13.5 % (11.5-14.5)
[2022-01-24 14:08] LABS: CARBON DIOXIDE 28.7 mmol/L (20.0-32)
--- NOTE | 2022-01-24 14:31 | DIREP ---
PROCEDURE:CHEST 2 VIEWS COMPARISON:[facility], CR, XRAY CHEST SINGLE VW, 01/19/2022, 12:25 PM. INDICATIONS:PACEMAKER LEAD ASSESSMENT FINDINGS: LUNGS/PLEURA:Mild chronic interstitial changes. No pneumothorax, infiltrate or pleural effusion. CARDIAC:Normal cardiac silhouette, aortic valve prosthesis, stable dual lead pacer and normal pulmonary vascularity. Aortic arch calcifications. MEDIASTINUM:Normal BONES:Mild thoracic spondylosis. OTHER:No additional findings. CONCLUSION:No acute cardiopulmonary process or significant change. Dictated by: Savi Carter MD on 01/24/2022 at 02:27 PM
== END | disposition home or self-care (01) ==
LOC: RAD 10:50
PROVIDERS: ATTEND Specialist
DX: R05.9 Cough, unspecified (principal); R06.02 Shortness of breath; J84.9 Interstitial pulmonary disease, unspecified; M47.814 Spondylosis without myelopathy or radiculopathy, thoracic region
CPT/HCPCS: 36415; 71046; 76000; 80053; 84145; 85027; 87637

== ENCOUNTER 2022-01-26 09:38 | Observation (INO) | payer MEDICARE ==
[~2022-01-26] VITALS: Ht 165.1 cm; Wt 83.9 kg
[~2022-01-26 09:38] MED LIST changes: +D5W-1/2NS 1000ML 1,000 ML IV PRN; +SUBLIMAZE IV ONE; +VALIUM PO ONE; +VANCOMYCIN HCL 1 GM in NS 250ML 250 ML IV ONE
[2022-01-26 09:45] VITALS: BP 143/86
[2022-01-26] MEDS ORDERED: TRANSDERM-SCOP TD ONE ×2 (10:30→10:59)
[2022-01-26] MEDS ORDERED: NS 1000ML 1,000 ML ONE (10:57)
[2022-01-26] MEDS ORDERED: VANCOMYCIN HCL 1 GM ONE (10:57)
[2022-01-26] MEDS ORDERED: NS 250ML 250 ML ONE (10:57)
[2022-01-26] MEDS ORDERED: SODIUM CHLORIDE IRR BOTTLE IR ONE (11:12)
[2022-01-26] MEDS ORDERED: XYLOCAINE ONE (11:13)
[2022-01-26] MEDS ORDERED: ISOTON GENTAMICIN 80 MG/50 ML 50 ML IV ONE (11:13)
[2022-01-26] MEDS ORDERED: VERSED ONE (11:18)
[2022-01-26] MEDS ORDERED: PEPCID IV ONE (11:18)
[2022-01-26] MEDS ORDERED: SUBLIMAZE IV PRN (14:00)
[2022-01-26] MEDS ORDERED: D5W-1/2 NS/KCL 20MEQ 1,000 ML IV SCH (14:00)
[2022-01-26] MEDS ORDERED: RESTORIL PO PRN (14:00)
[2022-01-26] MEDS ORDERED: NORCO 5MG PO PRN (14:00)
[2022-01-26] MEDS ORDERED: TYLENOL PO PRN ×2 (14:00)
[2022-01-26] MEDS: KEFLEX PO SCH ×2 (14:37→20:41)
[2022-01-26] MEDS ORDERED: VITAMIN C PO SCH ×2 (15:30→21:00)
--- NOTE | 2022-01-26 17:29 | DIREP ---
PROCEDURE:CHEST 1 VIEW COMPARISON:[facility], CR, XRAY CHEST 2 VWS, 01/24/2022, 11:02 AM. [facility], CR, XRAY CHEST SINGLE VW, 01/19/2022, 12:25 PM. INDICATIONS:pacer lead positioning FINDINGS: LUNGS/PLEURA:No significant pulmonary parenchymal abnormalities. No effusions. VASCULATURE:Normal. Unremarkable pulmonary vasculature. CARDIAC:Normal. No cardiac silhouette abnormality or cardiomegaly. MEDIASTINUM:Normal. No visible mass or adenopathy. BONES:Normal. No fracture or visible bony lesion. OTHER:Left cardiac pacing device. Surgical rani overlying the left upper chest wall. No pneumothorax. Pacing leads overlie the right ventricle and right atrium CONCLUSION:Cardiac pacing device is detailed above. Dictated by: Gil Ragsdale DO on 01/26/2022 at 05:27 PM
[2022-01-26 19:08] VITALS: BP 125/65
[2022-01-26] MEDS: TESSALON PERLE PO PRN (20:40)
[2022-01-26] MEDS: TIKOSYN PO SCH (20:41)
[2022-01-26] MEDS: COREG PO SCH (20:41)
[2022-01-26] MEDS ORDERED: LIPITOR PO SCH (21:00)
[2022-01-26] MEDS ORDERED: SINGULAIR PO SCH (21:00)
[2022-01-26] MEDS: FLOVENT HFA IH SCH (21:00)
--- NOTE | 2022-01-26 21:00 | NUR ---
ORDERS DISCONTINUE TYLENOL 1G PO PER CAMACHO D/T DUPLICATE ORDER RECEIVED ORDERS FOR TESSALON PERLE 100MG PO PRN TID FOR COUGH.
[2022-01-26 23:29] VITALS: BP 120/69
[2022-01-27 04:28] VITALS: BP 137/73
[2022-01-27] MEDS: TESSALON PERLE PO PRN (06:12)
--- NOTE | 2022-01-27 07:09 | PCM.EKG ---
[facility] Test Date: 2022-01-26 Test Time: 17:53:50 Pat Name: MITCH WINKLER Department: Room: 306 Gender: F Photography Assistant: : 1940 Requested By: ABEL SAUER Order Number: [id number] Reading MD: Measurements Intervals [place] Rate: 84 P: 4 TX: 149 QRS: 32 QRSD: 90 T: 190 QT: 376 QTc: 445 Interpretive Statements Sinus rhythm Left atrial enlargement Borderline repolarization abnormality No previous ECG available for comparison Please click the below link to view image of tracing.
[2022-01-27 07:11] VITALS: BP 140/76
--- NOTE | 2022-01-27 07:20 | NUR ---
DISCHARGE PLAN PER VISIT ON 01/20/22 PATIENT LIVES AT HOME ALONE. SHE HAS 5 CHILDREN AND SEVERAL GRANDCHILDREN WHO LIVE NEAR AND ARE VERY SUPPORTIVE. HER PCP IS Nicholas GARCIA. SHE HAS A SC, CANE , WALKER, AND RIGHT ORTHOTIC BOOT. CM EDUCATED ON HOME HEALTH AND PATIENT DENIED ADDITIONAL NEEDS AND RESOURCES AT THIS TIME. PATIENT DENIES FURTHER NEEDS.DR SAUER WILL PROVIDE PATIENT WITH A FOLLOW UP APPOINTMENT UPON DISCHARGE. CM WILL SCHEDULE F/U APPOINTMENT WITH DR GARCIA WHEN OFFICE IS OPEN. DISCHARGE PLAN IS FOR PATIENT TO D/C BACK HOME TO ROUTINE CARE WITH SUPPORT OF HER FAMILY AND KEEP SCHEDULED FOLLOW UP APPOINTMENTS. . Addendum: 01/27/22 at 0815 by Chichi Juares RN - Cotton Machine Operator RN CM AT BEDSIDE AND PATIENT CONFIRMED ALL PREVIOUS INFORMATION CORRECT AND SHE HAS A FOLLOW UP SCHEDULED WITH HER PCP Nicholas GARCIA ON January AT 8:15 AM. Addendum: 01/27/22 at 1146 by Erica Fleming RN,Case Abena LISA CM FAXED PATIENT'S CLINICALS TO DR Nicholas GARCIA@[phone]. FAX CONFIRMATION CONFIRMED COMPLETE.
[2022-01-27] MEDS: FLOVENT HFA IH SCH (09:00)
[2022-01-27] MEDS ORDERED: THERA PO SCH (09:00)
[2022-01-27] MEDS ORDERED: COZAAR PO SCH (09:00)
[2022-01-27] MEDS ORDERED: MAG-OX PO SCH (09:00)
--- NOTE | 2022-01-27 09:37 | PCM.EKG ---
[facility] Test Date: 2022-01-27 Test Time: 08:25:26 Pat Name: MITCH WINKLER Department: Room: 306 Gender: F Bus Aide: : 1940 Requested By: ABEL SAUER Order Number: [id number] Reading MD: Measurements Intervals [place] Rate: 74 P: 41 MS: 157 QRS: 20 QRSD: 87 T: -52 QT: 437 QTc: 485 Interpretive Statements Sinus rhythm Left atrial enlargement Borderline T abnormalities, diffuse leads No previous ECG available for comparison Please click the below link to view image of tracing.
[2022-01-27] MEDS: TIKOSYN PO SCH (09:47)
[2022-01-27] MEDS: KEFLEX PO SCH (09:48)
[2022-01-27] MEDS: COREG PO SCH (09:49)
--- NOTE | 2022-01-27 11:10 | NUR ---
DR DR SAUER PRESENT IN ROOM WITH PT DISCUSSING POC. INCISION ON LEFT UPPER CHEST CLEAN, DRY AND INTACT WITH MULUGETA. INCISION X 2. PIC TAKEN. DR SAUER REMOVED MULUGETA FROM SMALL INCISION AND PLACED STERI STRIPS. DRESSING REPLACED AND EXPLAINED TO PT AND SUPPLIES WILL BE SENT HOME WITH PT
[2022-01-27 11:39] VITALS: BP 136/79
--- NOTE | 2022-01-27 12:06 | HPH ---
DICTATOR NAME: Josep Mendoza MD CHIEF COMPLAINT: Malfunctioning pacer with dislodgement of active fixation atrial lead with the diaphragmatic stimulation and phrenic nerve stimulation, feeling very distressed and significant cough. HISTORY OF PRESENT ILLNESS: The patient is an 81-year-old white female who underwent a pacer last week for sick sinus syndrome, tachybrady manifestations with significant atrial fibrillation burden along with bradyarrhythmias and heart rate in the 40s and was unable to give antiarrhythmic therapy to control her paroxysmal atrial fibrillation. Pacer went well and she had 2 active fixation leads and then subsequently when she was at home, she was having lot of cough. Initial checkup of the pacemaker showed less than 1 volt thresholds, both in the atrium and the ventricle at 4 millivolts P-wave sensing and almost 9-10 millivolt R-wave sensing. Both impedances were normal. Subsequently, she had a severe bout of cough and felt on the right side like she had a baby kicking her and that is an exact description she had and the thumping woke her up and since then, she has been having persistent feeling and came to the office. The device check was done, and she had dislodged her atrial lead probably due to very hectic coughing. It was an active fixation lead and at this time, the patient needed the lead to be fixed and x-ray confirmed dislodgement of atrial lead, and she was brought in as an emergency to get her lead checked. She had been on Eliquis, which was stopped close to 48 hours and hence her hemostasis would be acceptable at this stage. ALLERGIES: IODINE. TEGADERM CAUSES A RASH AND ITCHING. SHE SAYS SHE IS ALLERGIC TO CODEINE, BUT HAS BEEN TAKING TUSSIONEX COUGH SYRUP. MEDICATIONS: She is on Tikosyn 125 mcg twice a day to control her atrial fibrillation, losartan 25 mg once a day. She is on Lipitor 40 mg once a day and she is on Coreg 6.25 mg twice a day and she takes Singulair 10 mg once a day. I gave her Breztri 2 puffs daily and has been on Keflex 500 mg 3 times a day. COVID test was negative and she is on multiple vitamins, see her list of medications. PAST MEDICAL HISTORY: Hypertension, hypertensive heart disease, bioprosthetic aortic valve replacement almost 8 years ago for aortic stenosis and a valve area of 1.1 square cm and a recent EDITH showed good integrity of the aortic valve. Has had paroxysmal atrial fibrillation, has TIA manifestation in the right eye with amaurosis fugax, which has improved at least 50% after she has been on a blood thinner. Initially, she was on aspirin, Plavix and subsequently she has been on Eliquis and all the workup with MRI revealed it was a vascular phenomenon. She has seen a neurologist. See the prior history for the details. SOCIAL HISTORY: Nonsmoker, no ethanol abuse. FAMILY HISTORY: Positive for heart problems. PHYSICAL EXAMINATION: GENERAL: She is alert, awake, oriented, 165 cm, 83 kg. BMI 30.8. VITAL SIGNS: Her pulse was 75, underlying regular rhythm, at times she is bradycardic and her blood pressure 130/70, respirations 18. HEENT: Unremarkable. NECK: No JVD, no carotid bruits. CHEST: Significant thick chest wall and large breasts and she has had bruises where Tegaderm was placed in the left infraclavicular region. PROBABLY, SHE IS ALLERGIC TO TEGADERM. LUNGS: Clear. HEART: Sounds are normal. ABDOMEN: Soft, nontender. EXTREMITIES: Distal pulses fairly well felt. NEUROLOGIC: Intact. IMPRESSION: Dislodgement of atrial lead, pacer malfunction, diaphragmatic stimulation, phrenic nerve stimulation, distressful situation because of phrenic nerve stimulation. RECOMMENDATION: Revision of the atrial lead and assess if she requires another lead. We will know that only when we will go in the OR. Josep Mendoza MD DR: CAMILLA/MARY ELLEN/BILL/ANNA TID: [id number] RECEIPT: [id number]
--- NOTE | 2022-01-27 12:06 | OPH ---
DATE OF SURGERY: 01/26/2022 DICTATOR NAME: Josep Mendoza MD PREOPERATIVE DIAGNOSES: Dislodgement of atrial lead with the pacer malfunction, diaphragmatic stimulation, phrenic nerve stimulation, active fixation atrial lead, tachybrady syndrome, sick sinus syndrome, syncope, paroxysmal atrial fibrillation, 25% atrial fibrillation burden, hypertension, hypertensive heart disease, bioprosthetic aortic valve replacement for aortic stenosis. POSTOPERATIVE DIAGNOSES: Dislodgement of atrial lead with the pacer malfunction, diaphragmatic stimulation, phrenic nerve stimulation, active fixation atrial lead, tachybrady syndrome, sick sinus syndrome, syncope, paroxysmal atrial fibrillation, 25% atrial fibrillation burden, hypertension, hypertensive heart disease, bioprosthetic aortic valve replacement for aortic stenosis. ANESTHESIA: 2% lidocaine in the left infraclavicular region and a TIVA anesthesia by [employer]UST[employer] BOOKBINDER. ANTIBIOTIC PROPHYLAXIS: Vancomycin 1 gram IV piggyback during the procedure. DEVICE IMPLANTED: Has been ScreenTag, serial #[id number] done on 01/19/2022. NARRATION OF PROCEDURE: Under complete surgical asepsis and under TIVA anesthesia, 2% local anesthesia instilled over the existing device pocket in the left infraclavicular region and, after good anesthesia, the rani were removed and the subcutaneous sutures were removed of the pacer pocket and there was a small hematoma, which was evacuated. The pacer was taken out from the pocket and the atrial lead was disconnected and a straight stylet was put in the atrial lead and active fixation screw was retracted back inside the lead. Subsequently, it was opened up with a straight stylet and there is no tissue noted. So the integrity of the screw was intact and subsequently a J tipped stylet was placed in the lead and it was placed in the right atrial medial wall. She does not have atrial appendage due to open heart surgery. The lead appeared to be in good radiological stable position. Multiple maneuvers with turning the table to the right and to the left and the patient coughing with light sedation and she cooperated very well and also taking deep breaths showed that the new position of the lead was very stable and even the table was put in a Trendelenburg position and subsequently in reverse Trendelenburg, there is no alteration in the position of the lead was documented. The threshold obtained was close to 0.7 volt threshold in the atrium with 3 millivolts P-wave and 0.4 milliseconds pulse width and 468 ohms impedance in the atrium. In the ventricle, a 1-week old active fixation ventricular lead at 13.8 millivolt, R-wave with 1 volt, threshold 0.4 millisecond and 663 ohms. The device was programmed to DDD I-OPT with a lower rate of 70, upper rate is 130, upper sensing rate is 120 beats per minute. Mode switch at 160 beats per minute with the AV delay 200 milliseconds with I-OPT turned on and it was programmed to an amplitude of 3.6 volts in the atrium with an auto turned on with 0.4 milliseconds pulse width with 0.5 millivolt atrial sensitivity in bipolar pacing and sensing mode ventricle was 3.2 volt, threshold of 0.4 milliseconds and 2.5 millivolts sensitivity in the RV with bipolar pacing and sensing mode. Subsequently, the Garamycin irrigation of the pocket was done. Both leads were connected to the device. The device was kept in the pocket. Subcutaneous sutures were applied and rani applied to the skin. The patient tolerated the procedure well. Next, the checkup shows 0.4 volt thresholds both in the atrium and the ventricle with close to 3 millivolt P-wave and 13 millivolt R-wave and both the impedances were normal and the patient was showing intermittent atrial pacing and she has had no symptoms and the wound looks clean and she will be discharged home with postop instructions. Josep Mendoza MD DR: NORMA TID: [id number] RECEIPT: [id number]
[2022-01-27 12:15] VITALS: BP 136/79
--- NOTE | 2022-01-27 12:15 | NUR ---
DC DC INSTRUCTIONS GIVEN. PT VOICED UNDERSTANDING AND SIGNED WRITTEN OF SAME. IV DCD. TIP INTACT.
--- NOTE | 2022-01-27 12:18 | NUR ---
pt and daughter given discharge teaching, voiced understanding. discharged via w/c accompanied by nursing x2 to personal vehicle
--- NOTE | 2022-01-27 12:19 | NUR ---
DCD DCD HOME VIA W/C IN STABLE CONDITION WITH DAUGHTER.
--- NOTE | 2022-01-27 21:59 | DSH ---
DATE OF DISCHARGE: 01/27/2022 DICTATOR NAME: Josep Mendoza MD FINAL DIAGNOSES: Pacer malfunction, dislodgement of the atrial lead active fixation lead with diaphragmatic stimulation, phrenic nerve stimulation. The patient is being distressed by the same. Tachybrady syndrome, sick sinus syndrome, paroxysmal atrial fibrillation with underlying bradycardia with a rate of 40-50, hypertension, hypertensive heart disease, bioprosthetic aortic valve, history of nonsustained ventricular arrhythmias in the past. Please refer to my history and physical to the point of impression. PROCEDURE DONE: Revision of atrial fixation lead with good numbers. HOSPITAL COURSE: The patient had on 01/19/2022 a DDD pacer inserted and both active fixation leads were in good position and good stability of the lead was documented with less than 1 volt thresholds both in the atrium and ventricle with 4 millivolt P-wave and 13 millivolt R-wave and impedances were normal. Subsequently, she started having active bout of coughing, dry, hacking cough. COVID test was negative. All the blood work was negative. Chest x-ray did not show any infiltration, but while in the process of severe dry, hacking cough she dislodged her atrial lead and developed phrenic nerve stimulation and diaphragmatic stimulation, which was very distressful and she had been on Eliquis for atrial fibrillation, so waited for 48 hours after the Eliquis was out of her system and she underwent revision of atrial lead with placing the lead in the new position with excellent numbers with 0.4 volt threshold in the atrium and 3 millivolts P-wave and impedance was normal. The ventricular lead was stable with less than 1 volt threshold with 13 millivolt R-wave and impedance was normal and she was pacing atrially very well and pacing at 90 beats per minute. The atrial lead showed very good atrial pacing. Loop recorder rani were removed on 01/27/2022. The wound looks clean and patient was discharged on Breztri 2 puffs daily. Her night cough is still a problem, gave her Tussionex 1-2 spoonful twice a day. She is on Tylenol, Eliquis 5 mg twice a day to be started from 01/29/2022 and Lipitor 40 mg once a day, multivitamins, calcium, Coreg 6.25 mg twice a day, Keflex 500 mg 3 times a day for 7 days, Tikosyn 125 mcg twice a day, losartan 25 mg once a day, magnesium oxide 250 mg once a day, Soma compound 500 mg at bedtime, Singulair 10 mg once a day and multivitamin and CoQ10 one tablet daily and zinc 50 mg once a day and vitamin D. She will be seen back in the office on 02/01/2022 for wound check and SHE IS ALLERGIC TO TEGADERM, hence Neosporin over the existing device pocket over the rani along with 4 x 4 and hypoallergenic tape was used and postop instructions were given. The patient tolerated the procedure well. Josep Mendoza MD DR: CAMILLA/WARREN/MORIAH/FABIO TID: [id number] RECEIPT: [id number]
== END 2022-01-27 12:20 | disposition home or self-care (01) ==
LOC: SDC 09:38 → INTOOBSV 12:40 → MS 12:40 → UNDOADMOB 12:40 → EDPENDDISTM 01-27 12:15 → UNDODISOB 01-27 12:20
PROVIDERS: ADMIT Specialist; ATTEND Specialist
DX: T82.128A Displacement of other cardiac electronic device, initial encounter (principal); I49.5 Sick sinus syndrome; I48.0 Paroxysmal atrial fibrillation; I35.0 Nonrheumatic aortic (valve) stenosis; I11.9 Hypertensive heart disease without heart failure; J45.909 Unspecified asthma, uncomplicated; Z79.01 Long term (current) use of anticoagulants; Z95.3 Presence of xenogenic heart valve; Z86.73 Personal history of transient ischemic attack (TIA), and cerebral infarction without residual deficits
CPT/HCPCS: 33273; 71045; 76000; 93005 ×2; A4217; G0378 ×3; J2001; J2250; J3370; J3490; J7030; J7050